=== PATIENT | male | born 1960 | race African-American/Black ===

== ENCOUNTER 2019-07-12 11:38 | Inpatient (IN) | payer OTHER ==
[~2019-07-12] VITALS: Ht 177.8 cm; Wt 96.9 kg
[2019-07-12 11:48] VITALS: BP_SYST 150
[2019-07-12] MEDS ORDERED: NACL 0.9% 1,000 ML IV ONE (12:00)
--- NOTE | 2019-07-12 12:00 | NUR ---
Patient triaged and placed on EMS gurney. VSS and patient appears in no acute distress at this time. Accompanied by ems , awaiting available bed, and MD notified of need for MSE.
--- NOTE | 2019-07-12 12:04 | NUR ---
Placed in room 03 . Placed on desk monitor, blood pressure machine and pulse oximeter. To gown for exam. Side rails up.
--- NOTE | 2019-07-12 12:05 | NUR ---
Pt AAOx2 presents to ED via BLS from [facility] for increased confusion and hyperglycemia with blood sugar up to 355 at facility. Pt agitated upon arrival, refusing vital signs and swinging at staff when attempting to get accucheck. Dr. Dueñas notified. Behavioral restraints ordered. Per MD, ok to use behavioral restraints if pt cannot be re-oriented to ED and continues to be combative with staff. Pt resting comfortably when left alone. Will continue to monitor.
--- NOTE | 2019-07-12 12:30 | NUR ---
MD FREY AT BEDSIDE ASSESSING PT.
[2019-07-12 12:32] LABS: BASOPHILS # (AUTO) 0.1 K/uL (0.0-0.2); BASOPHILS % (AUTO) 0.4 % (0.0-2.0); EOSINOPHILS % (AUTO) 0.1 % (0.0-4.0); HEMATOCRIT 45.6 % (36-54); HEMOGLOBIN 15.2 g/dL (14.0-18.0); LYMPHOCYTES # (AUTO) 0.8 K/uL (1.0-5.5); LYMPHOCYTES % (AUTO) 5.5 % (20.5-51.5); MEAN CORPUSCULAR HEMOGLOBIN 31 pg (27-31); MEAN CORPUSCULAR HGB CONC 33 % (32-36); MEAN CORPUSCULAR VOLUME 94 fL (79.0-98.0); MONOCYTES # (AUTO) 0.7 K/uL (0.0-1.0); MONOCYTES % (AUTO) 4.5 % (1.7-9.3); NEUTROPHILS # (AUTO) 13.7 K/uL (1.8-7.7); NEUTROPHILS % (AUTO) 89.5 % (40.0-70.0); PLATELET COUNT (AUTO) 360 K/uL (130-430); RED BLOOD CELL COUNT(AUTO) 4.87 MIL/uL (4.2-6.2); RED CELL DISTRIBUTION WIDTH 12.7 % (9.0-15.0); WHITE BLOOD COUNT (AUTO) 15.3 K/uL (4.8-10.8)
--- NOTE | 2019-07-12 12:45 | NUR ---
CHEST XRAY DONE. PT IS SLIGHTLY AGGESSIVE AND REFUSING CARE. RN HAS SPOKEN WITH PT KINDLY, AND GIVEN SANDWHICH AND JUICE. PT IS OPENING UP AND BEING MORE COOPERATIVE.
[2019-07-12 12:50] LABS: CALCIUM 10.3 mg/dL (8.4-11.0); CREATININE 2.04 mg/dL (0.55-1.30); POTASSIUM 4.9 mmol/L (3.5-5.1)
[2019-07-12 12:55] LABS: ALBUMIN 3.6 g/dL (3.4-4.8); TOTAL BILIRUBIN 0.6 mg/dL (0.0-1.0)
[2019-07-12] MEDS ORDERED: INSULIN REGULAR, HUMAN 10 UNITS/0.1 ML INJ IVP ONE (13:00)
[2019-07-12] MEDS ORDERED: VANCOMYCIN HCL 1,000 MG in NS 250 ML IV ONE (13:15)
[2019-07-12] MEDS ORDERED: MEROPENEM 500 MG in NS 50 ML IV ONE (13:15)
[2019-07-12] MEDS ORDERED: MEROPENEM 500 MG VIAL IV ONE (13:33)
--- NOTE | 2019-07-12 14:00 | NUR ---
IVPB Meropenem given by RN started infusion @ 1328 and completed infusion @ 1400. Medication was given IVPB, not IVP
[2019-07-12] MEDS ORDERED: ONDANSETRON HCL 4 MG/2 ML VIAL IVP PRN (14:15)
[2019-07-12] MEDS ORDERED: MILK OF MAGNESIA 30 ML UDC PO PRN (14:15)
[2019-07-12] MEDS ORDERED: guaiFENesin 200 MG/10 ML UDC PO PRN (14:15)
[2019-07-12] MEDS ORDERED: ACETAMINOPHEN 325 MG TABLET PO PRN (14:15)
[2019-07-12] MEDS ORDERED: NPH,100V2 SQ ×3 (14:55)
[2019-07-12] MEDS ORDERED: INSU100V42 SQ (14:55)
[2019-07-12] MEDS ORDERED: TAMS-11 PO (14:55)
[2019-07-12] MEDS ORDERED: pancrelipase PO (14:55)
[2019-07-12] MEDS ORDERED: LITH300T PO (14:58)
[2019-07-12] MEDS ORDERED: LITH600C PO (14:58)
[2019-07-12] MEDS ORDERED: ARIP20TA4 PO (14:58)
[2019-07-12] MEDS ORDERED: RISP3TAB5 PO (14:58)
[2019-07-12] MEDS ORDERED: LORA-259 PO (14:58)
--- NOTE | 2019-07-12 15:14 | NUR ---
RT at bedside for breathing tx
[2019-07-12] MEDS ORDERED: D5W 1,000 ML IV PRN (15:15)
[2019-07-12] MEDS: methylPREDNISolone SOD SUCC/PF 62.5 MG/ML VIAL IVP SCH ×2 (15:21→22:17)
[2019-07-12] MEDS: IPRATROPIUM/ALBUTEROL SULFATE 3 ML AMPUL.NEB (DUONEB) INH SCH ×3 (15:22→23:00)
--- NOTE | 2019-07-12 15:28 | NUR ---
EKG done at bedside. Dr. Ponce lawton.
--- NOTE | 2019-07-12 15:30 | NUR ---
IVPB Vancomycin was given by RN. Infusion started @ 1328 and was completed @ 1530.
[2019-07-12] MEDS ORDERED: VANCOMYCIN HCL 500 MG in NS 100 ML IV ONE (17:00)
[2019-07-12] MEDS: NPH, HUMAN INSULIN ISOPHANE 100 UNITS/ ML 10 ML VIAL SQ SCH (17:30)
[2019-07-12] MEDS ORDERED: INSULIN NPH 100 UNITS/ML 10 ML VIAL ONE (17:38)
[2019-07-12] MEDS ORDERED: CEFEPIME 1 GM in D5W 50 ML IV SCH (18:00)
--- NOTE | 2019-07-12 18:45 | NUR ---
Patient will be admitted to [facility]. Admitted to Telemetry unit. Will go to room 112B. Complete and up to date summary report printed. SBAR report to be given at bedside with opportunity for questions.
--- NOTE | 2019-07-12 18:51 | NUR ---
ADMIT NOTE Received pt from ER to the floor with a diagnosis of PNA and renal failure. Admission process initiated. patient oriented to pain management, safety and call light-teach back done.
[2019-07-12 18:56] VITALS: BP_SYST 120
--- NOTE | 2019-07-12 19:08 | NUR ---
CONSULTATION PAGED/CALLED Reason for Consultation: INCREASE CONFUSION Person Who was Notified: EXCHANGE Consulting Physician: MICKEY Production Sanitizer Specialty: Ordering Physician: REID
[2019-07-12] MEDS: CEFEPIME 1 GM in D5W 50 ML IV SCH (19:14)
[2019-07-12] MEDS: NACL 0.9% 1,000 ML IV SCH (19:15)
[2019-07-12] MEDS: risperiDONE 1 MG TABLET (RisperDAL) PO SCH (22:18)
[2019-07-12] MEDS: LITHIUM CARBONATE 300 MG TABLET.SA PO SCH (22:18)
[2019-07-12] MEDS: TAMSULOSIN HCL 0.4 MG CAP PO SCH (22:19)
[2019-07-12] MEDS: LIPASE/PROTEASE/AMYLASE 1 CAP PO SCH (22:19)
[2019-07-12] MEDS: HEPARIN SODIUM,PORCINE 5000 UNITS/ML VIAL SUBCUT SCH (22:30)
[2019-07-12] MEDS: INSULIN LISPRO SLIDING SCALE 100 UNITS/ML VIAL (humaLOG) SUBCUT PRN (22:42)
[2019-07-13 00:06] VITALS: BP_SYST 131
[2019-07-13] MEDS: NACL 0.9% 1,000 ML IV SCH ×3 (00:08→20:08)
[2019-07-13] MEDS: ZOLPIDEM TARTRATE 5 MG TABLET PO PRN (01:37)
[2019-07-13] MEDS: methylPREDNISolone SOD SUCC/PF 62.5 MG/ML VIAL IVP SCH ×3 (06:11→23:00)
[2019-07-13] MEDS: CEFEPIME 1 GM in D5W 50 ML IV SCH ×2 (06:11→17:36)
--- NOTE | 2019-07-13 07:50 | NUR ---
INITIAL NOTE RECEIVED PT IN BED, NO S/S OF DISTRESS OR SOB NOTED, PT HAS NO C/O PAIN AT THIS TIME, PT IN STABLE CONDITION, PT AAOX1, VERBAL BUT CONFUSED, PROVIDED PT WITH REALITY ORIENTATION, COMBATIVE AND YELLING AT TIMES, DOES NOT WANT TO BE APPROACH. IV CATHETER PATENT, NO SIGNS OF INFECTION OR INFILTRATION NOTED, RUNNING IV FLUIDS ORDERED. BED AT LOWEST POSITION, CALL LIGHT WITHIN REACH, WILL CONTINUE TO MONITOR PT FOR ANY CHANGES, FALL AND SAFETY PRECAUTIONS IN PLACE.
--- NOTE | 2019-07-13 08:10 | NUR ---
ASSESSMENT REFUSED PT REFUSED AM MEDS AND PHYSICAL ASSESSMENT, PT ANGRY AND YELLING, COMBATIVE AND CONFUSED, DOES NOT WANT TO BE APPROACHED AND IS CURSING. CHARGE NURSE MADE AWARE.
[2019-07-13] MEDS: ARIPiprazole 5 MG TAB PO SCH ×2 (08:14→08:22)
[2019-07-13] MEDS: LITHIUM CARBONATE 300 MG TABLET.SA PO SCH ×3 (08:15→23:10)
[2019-07-13] MEDS: LIPASE/PROTEASE/AMYLASE 1 CAP PO SCH ×4 (08:15→23:11)
[2019-07-13] MEDS: risperiDONE 1 MG TABLET (RisperDAL) PO SCH ×3 (08:15→23:10)
[2019-07-13] MEDS: HEPARIN SODIUM,PORCINE 5000 UNITS/ML VIAL SUBCUT SCH ×3 (08:16→21:00)
[2019-07-13] MEDS: NPH, HUMAN INSULIN ISOPHANE 100 UNITS/ ML 10 ML VIAL SQ SCH ×2 (08:23→17:39)
--- NOTE | 2019-07-13 10:30 | NUR ---
ROUNDS PT IN BED, NO S/S OF DISTRESS OR SOB NOTED, PT HAS NO C/O PAIN AT THIS TIME, PT IN STABLE CONDITION, PT RESTING COMFORTABLY, CONTINUES TO BE COMBATIVE, YELLING, CONFUSED, REFUSED TURNING AND REPOSITIONING. WILL CONTINUE TO MONITOR PT FOR ANY CHANGES.
--- NOTE | 2019-07-13 11:13 | NUR ---
CONSULTATION PAGED REASON FOR CONSULTATION:ARF WAS CONSULT CALLED?Y PERSON WHO WAS NOTIFIED:BETSY CONSULTING PHYSICIAN:AUGUSTO MARCH ELECTRIC SEALING MACHINE OPERATOR SPECIALTY:NEPHRO ELECTRIC SEALING MACHINE OPERATOR PHONE NUMBER:[phone] REQUESTING PHYSICIAN:PORTIA CHAVARRIA
--- NOTE | 2019-07-13 11:15 | NUR ---
MD ROUNDS DR FRANCES GARCIA, AWARE OF PATIENT'S CONDITION, AWARE THAT PT HAS REFUSED ACCUCHECKS AND MEDICATIONS WELL ASSESSMENT AND TURNING AND REPOSITIONED.
[2019-07-13] MEDS: VANCOMYCIN HCL 1,500 MG in NS 250 ML IV SCH (13:43)
[2019-07-13] MEDS ORDERED: VANCOMYCIN HCL 1,500 MG in NS 250 ML IV SCH (14:00)
[2019-07-13 15:59] LABS: HEMATOCRIT 42.7 % (36-54); HEMOGLOBIN 13.8 g/dL (14.0-18.0); MEAN CORPUSCULAR HEMOGLOBIN 31 pg (27-31); MEAN CORPUSCULAR HGB CONC 32 % (32-36); MEAN CORPUSCULAR VOLUME 95 fL (79.0-98.0); PLATELET COUNT (AUTO) 345 K/uL (130-430); RED CELL DISTRIBUTION WIDTH 12.7 % (9.0-15.0)
[2019-07-13 16:00] VITALS: BP_SYST 133
[2019-07-13 16:01] LABS: CALCIUM 9.9 mg/dL (8.4-11.0); CREATININE 1.83 mg/dL (0.55-1.30); POTASSIUM 5.4 mmol/L (3.5-5.1)
[2019-07-13 16:02] LABS: WHITE BLOOD COUNT (AUTO) 22.2 K/uL (4.8-10.8)
[2019-07-13 16:15] LABS: BAND % (MANUAL) 0 % (0-6); BASOPHILS % (MANUAL) 0 % (0-2); EOSINOPHILS % (MANUAL) 0 % (0-7); LYMPHOCYTES % (MANUAL) 5 % (20-46); MONOCYTES % (MANUAL) 5 % (0-11)
--- NOTE | 2019-07-13 16:15 | NUR ---
BLOOD GLUCOSE PATIENT'S BLOOD GLUCOSE WAS 383, ADMINISTERED 10 UNITS OF INSULIN ORDERED PRN, PT TOLERATED AND IS EATING A SNACK AT THIS TIME. PT CONTINUES TO BE COMBATIVE AND YELLING, ALLOWED FOR VITALS TO BE TAKEN BUT NO TURNING OR CLEANING. PT REMOVED IV CATHETER ON RIGHT HAND, CATHETER INTACT, NO ACTIVE BLEEDING NOTED, DRESSING IN PLACE, PT REFUSED PLACEMENT OF IV CATHETER AT THIS TIME. CHARGE NURSE MADE AWARE.
[2019-07-13] MEDS: INSULIN LISPRO SLIDING SCALE 100 UNITS/ML VIAL (humaLOG) SUBCUT PRN ×2 (16:18→23:22)
--- NOTE | 2019-07-13 18:24 | NUR ---
CLOSING NOTE PT SITTING UP IN CHAIR, NO S/S OF DISTRESS OR SOB NOTED, PT HAS NO C/O PAIN AT THIS TIME, PT IN STABLE CONDITION, PT AAOX1, VERBAL BUT CONFUSED, PROVIDED PT WITH REALITY ORIENTATION, COMBATIVE AND YELLING AT TIMES, DOES NOT WANT TO BE APPROACH. PT HAS NO IV CATHETER IN PLACE, REMOVED IT EARLIER AND REFUSED TO HAVE ANOTHER INSERTED. BED AT LOWEST POSITION, CALL LIGHT WITHIN REACH, WILL ENDORSE CARE OF PT TO INCOMING NURSE, FALL AND SAFETY PRECAUTIONS IN PLACE.
--- NOTE | 2019-07-13 19:12 | NUR ---
OPENING NOTES RECEIVED PATIENT SITTING IN CHAIR CONFUSED. PATIENT GETS AGITATED WHENEVER STAFF TRY TO MAKE A CONVERSATION. PATIENT SAFETY MONITORED. BREATHING UNLABORED ON ROOM AIR. NO C/O AT THIS TIME.
--- NOTE | 2019-07-13 21:00 | NUR ---
ROUNDS PATIENT REFUSING VITAL SIGNS TO BE TAKEN. PATIENT WAS RAISING ARM AND MAKING A FIST ON HIS RT HAND. LEFT PATIENT ALONE. WILL TRY AGAIN LATER. PATIENT REMAINS SITTING IN CHAIR. REFUSING TO GO BACK TO BED.
[2019-07-13] MEDS: TAMSULOSIN HCL 0.4 MG CAP PO SCH (23:11)
--- NOTE | 2019-07-13 23:22 | NUR ---
MED PASS PATIENT DUE MEDS GIVEN LATE DUE TO PT REFUSAL EARLIER. PATIENT PUT BACK TO BED WITH CHARGE NURSE KARY'S HELP. VITAL SIGNS STABLE. STILL REFUSING IV REINSERTION. BED IN LOWEST LOCKED POSITION WITH ALARM ON.
[2019-07-13 23:29] VITALS: BP_SYST 144
--- NOTE | 2019-07-14 00:10 | NUR ---
CRITICAL RESULT CALLED DR. DANIELS FOR CRITICAL RESULT CALLED BY LAB FOR LITHIUM LEVEL 4.38
--- NOTE | 2019-07-14 00:12 | NUR ---
PAGED I PAGED DR. DANIELS I SPOKE WITH INEMARY EXCHANGE
--- NOTE | 2019-07-14 00:32 | NUR ---
MD DR. DANIELS CALLED BACK MADE AWARE OF CRITICAL LITHIUM LEVEL. ORDERED TO HOLD CALCIUM CARBONATE. ORDER NOTED AND CARRIED OUT
--- NOTE | 2019-07-14 00:34 | NUR ---
CALLED BACK NOW
--- NOTE | 2019-07-14 01:37 | NUR ---
ROUNDS PATIENT RESTING IN BED. NO DISTRESS NOTED.
--- NOTE | 2019-07-14 04:02 | NUR ---
ROUNDS PATIENT AWAKE. PATIENT KEEPS REMOVING TELE LEADS. REFUSING LEADS TO BE FIXED AND GETS AGITATED WHEN BEING APPROACHED.
--- NOTE | 2019-07-14 05:30 | NUR ---
AM CARE AM CARE DONE. ALL LINENS CHANGED.
[2019-07-14] MEDS: CEFEPIME 1 GM in D5W 50 ML IV SCH ×2 (06:00→17:52)
[2019-07-14] MEDS: NACL 0.9% 1,000 ML IV SCH ×2 (06:08→16:08)
[2019-07-14] MEDS: INSULIN LISPRO SLIDING SCALE 100 UNITS/ML VIAL (humaLOG) SUBCUT PRN ×3 (06:24→21:55)
--- NOTE | 2019-07-14 06:35 | NUR ---
CLOSING NOTES PATIENT STILL REFUSING IV INSERTION. PATIENT NEEDS ATTENDED. BED IN LOWEST LOCKED POSITION WITH ALARM ON.
--- NOTE | 2019-07-14 06:57 | NUR ---
Nutrition Update Saad Scale 16 noted. Pt admitted for Pneumonia, Renal Failure Diet: Renal Standard BMI: 30.1 kg/m2 RD to follow per nutrition care standards.
[2019-07-14] MEDS: methylPREDNISolone SOD SUCC/PF 62.5 MG/ML VIAL IVP SCH (07:00)
--- NOTE | 2019-07-14 07:30 | NUR ---
RN OPENING NOTE PATIENT IS REFUSING IV ACCESS AT THIS TIME. PER NIGHT NURSE PATIENT IS COMBATIVE WHEN TRY TO TOUCH PATIENT. PATIENT ALSO REFUSING LAB WORK. PATIENT IS AWAKE AND ALERT, ATTEMPTED TO EDUCATE EFFICIENCY MINER LIGHT, PATIENT JUST LOOKED AT ME THEN CLOSED HIS EYES DID NOT SAY ANYTHING. PATIENT IS CLOSE TO NURSES STATION. ALL SAFETY PRECAUTIONS IN PLACE. WILL CONTINUE TO MONITOR.
[2019-07-14 08:30] VITALS: BP_SYST 137
[2019-07-14] MEDS: NPH, HUMAN INSULIN ISOPHANE 100 UNITS/ ML 10 ML VIAL SQ SCH ×2 (09:00→18:00)
[2019-07-14] MEDS: ARIPiprazole 5 MG TAB PO SCH (09:51)
[2019-07-14] MEDS: risperiDONE 1 MG TABLET (RisperDAL) PO SCH ×2 (09:51→21:29)
[2019-07-14] MEDS: LIPASE/PROTEASE/AMYLASE 1 CAP PO SCH ×3 (09:52→21:29)
--- NOTE | 2019-07-14 10:00 | NUR ---
MEDICATION PATIENTS SCHEDULED MEDICATION GIVEN ORDERED. NPH IS NOT SCANNING, PHARMACY IS AWARE STATES IT IS AN ERROR ON IT END. IT MADE AWARE, STATES THEY WILL CALL PHARMACY THEN CALL ME BACK. PATIENT HAS ALL SAFETY PRECAUTIONS IN PLACE. CALL LIGHT IS WITH HIM. PATIENT IS STILL REFUSING IV ACCESS.
[2019-07-14] MEDS: HEPARIN SODIUM,PORCINE 5000 UNITS/ML VIAL SUBCUT SCH ×2 (10:05→21:49)
[2019-07-14 10:37] LABS: BASOPHILS # (AUTO) 0.1 K/uL (0.0-0.2); BASOPHILS % (AUTO) 0.3 % (0.0-2.0); EOSINOPHILS % (AUTO) 0.2 % (0.0-4.0); HEMATOCRIT 43.3 % (36-54); HEMOGLOBIN 14.2 g/dL (14.0-18.0); MEAN CORPUSCULAR HEMOGLOBIN 31 pg (27-31); MEAN CORPUSCULAR HGB CONC 33 % (32-36); MEAN CORPUSCULAR VOLUME 94 fL (79.0-98.0); MONOCYTES # (AUTO) 1.2 K/uL (0.0-1.0); MONOCYTES % (AUTO) 6.1 % (1.7-9.3); NEUTROPHILS # (AUTO) 17.4 K/uL (1.8-7.7); NEUTROPHILS % (AUTO) 88.4 % (40.0-70.0); PLATELET COUNT (AUTO) 299 K/uL (130-430); RED BLOOD CELL COUNT(AUTO) 4.61 MIL/uL (4.2-6.2); RED CELL DISTRIBUTION WIDTH 12.9 % (9.0-15.0); WHITE BLOOD COUNT (AUTO) 19.7 K/uL (4.8-10.8)
[2019-07-14 10:56] LABS: POTASSIUM 4.4 mmol/L (3.5-5.1)
[2019-07-14 10:57] LABS: ALBUMIN 3.6 g/dL (3.4-4.8); CALCIUM 10.6 mg/dL (8.4-11.0); CREATININE 1.51 mg/dL (0.55-1.30); PHOSPHORUS 1.9 mg/dL (2.7-4.5); TOTAL BILIRUBIN 0.4 mg/dL (0.0-1.0)
--- NOTE | 2019-07-14 11:05 | NUR ---
NPH GIVEN WITNESSED BY RN. UNABLE TO SCAN PHARMACY AND IT ARE AWARE.
[2019-07-14 12:19] VITALS: BP_SYST 140
--- NOTE | 2019-07-14 12:20 | NUR ---
dr. reece at nurses station patient is awake and alert, refusing iv access, made aware. patient has all safety precautions in place. call light is with him . educated verification rep light but does not respond verbally. patient is close to nurses station. will continue to monitor. Addendum: 07/14/19 at 2120 by Camryn Shipley RN PATIENTS ACCU CHECK DONE, COVERAGE GIVEN ORDERED.
[2019-07-14 13:56] LABS: CLARITY/URINE CLEAR (CLEAR); COLOR,URINE YELLOW (YELLOW); GLUCOSE,URINE 2+ (NEGATIVE); PH,URINE 6.5 (5.0-8.0); PROTEIN URINE NEGATIVE (NEGATIVE)
[2019-07-14 13:57] LABS: BILIRUBIN,URINE NEGATIVE (NEGATIVE); BLOOD, URINE NEGATIVE (NEGATIVE); KETONES,URINE 1+ (NEGATIVE); LEUKOCYTE ESTERASE ,URINE NEGATIVE (NEGATIVE); NITRITE, URINE NEGATIVE (NEGATIVE)
[2019-07-14 13:58] LABS: BACTERIA,URINE RARE /HPF (None Seen); RBC,URINE 0-3 /HPF (0-3); WBC,URINE 0-3 /HPF (0-3)
[2019-07-14 13:59] LABS: MUCUS,URINE 1+ /LPF (None Seen)
[2019-07-14] MEDS: VANCOMYCIN HCL 1,500 MG in NS 250 ML IV SCH (14:00)
--- NOTE | 2019-07-14 14:00 | NUR ---
INCONTINENCE CARE PATIENT IS SOILED DOES NOT WANT TO BE TOUCHED, IS KICKING AND SWINGING AT NURSES. ATTEMPTED TO REORIENT. ABLE TO REMOVE SOILED TRUNG AND PLACE NEW TRUNG UNDER PATIENT. ALL SAFETY PRECAUTIONS IN PLACE. CLOSE TO NURSES STATION.
[2019-07-14] MEDS: methylPREDNISolone SOD SUCC 40 MG/ML VIAL IVP SCH ×2 (15:00→23:00)
[2019-07-14 15:08] VITALS: BP_SYST 126
--- NOTE | 2019-07-14 15:51 | NUR ---
medication patients scheduled medication given per order. patient is refusing iv access. patient is non verbal but can knodd. Addendum: 07/14/19 at 2124 by Camryn Shipley RN PATIENT IS SWINGING HIS ARMS, AND KICKING AT NURSES. ATTEMPTED TO REORIENT BUT IS NOT UNDERSTANDING.PATIENT HAS ALL SAFETY PRECAUTIONS IN PLACE. WILL TAKE ORAL MEDICATION ONLY. CALL LIGHT IS WITH HIM EDUCATED TO USE FOR ASSISTANCE. PATIENT HAS NO OTHER NEEDS AT THIS TIME. WILL CONTINUE TO MONITOR.
[2019-07-14 16:55] LABS: URINE SODIUM, RANDOM 68 mmol/L (40-220)
--- NOTE | 2019-07-14 17:00 | NUR ---
ACCU CHECK/NPH PATIENT IS REFUSING MEDICATION AND ACCU CHECK TO BE DONE. PATIENT IS SWINGING HIS ARMS AT NURSE TRYING TO HIT HER. PATIENT ATTEMPTED TO REORIENTED BUT IS NOT UNDERSTANDING. PATIENT HAS ALL SAFETY PRECAUTIONS IN PLACE CALL LIGHT IS HIM EDUCATED TO USE FOR ASSISTANCE. PATIENT IS CLOSE TO NURSES STATION NO OTHER NEEDS AT THIS TIME.
--- NOTE | 2019-07-14 18:44 | NUR ---
RN CLOSING NOTE/ DR. MARIA TERESA LEBLANC AT NURSES STATION. MD MADE AWARE OF COMBATIVE BEHAVIOR, AND REFUSING IV ACCESS ALL DAY. PATIENT DOES NOT WANT TO BE TOUCHED. PATIENT HAS ALL SAFETY PRECAUTIONS IN PLACE. CALL LIGHT IS WITH HIM . PATIENT IS CLOSE TO NURSES STATION. NO OTHER NEEDS AT THIS TIME.
--- NOTE | 2019-07-14 19:35 | NUR ---
Opening Note Received report from kamala BAZAN, patient is resting in bed, Julita to name, reoriented patient to person, place, time and event, Addendum: 07/15/19 at 0010 by Eda Tran RN Opening Note Received report from kamala BAZAN, patient is resting in bed, Julita to name, reoriented patient to person, place, time and event, even and unlabored breathing on room air, no signs of acute distress, no IV site in place, will try and re-interest new IV, safety, fall and aspiration precautions in place, bed locked and in lowest position, bed alarm on, bed close to nursing station, call light with patient, will continue to monitor.
[2019-07-14 20:00] VITALS: BP_SYST 155
--- NOTE | 2019-07-14 21:20 | NUR ---
Incontinence Care/RN Rounds Patient voided. Incontinence care rendered by this RN and Rebeka RODRIGUEZ. Had Mario RN assist because patient became combative. Patient is clean, dry, and repositioned. Multiple RNs attempted to reinsert new IV but patient refused despite education. Safety and fall precautions in place, bed close to nursing station, call light with patient, will continue to monitor.
[2019-07-14] MEDS: TAMSULOSIN HCL 0.4 MG CAP PO SCH (21:29)
--- NOTE | 2019-07-14 21:54 | NUR ---
Blood Sugar= 229 Patient's blood sugar is 229. Insulin lispro indicated per insulin sliding scale. Educated patient on medication uses and potential side effects, patient unable to verbalize understanding due to cognitive impairment. Administered medication per MD order. No signs of acute distress at this time. Safety and fall precautions in place, call light with patient, will continue to monitor.
--- NOTE | 2019-07-15 00:10 | NUR ---
RN Rounds Pt is resting in bed, awake, pt physically refused renal ultra sound despite education, catheterization laboratory technician verbalized she will try again in the morning, pt is tolerating room air, no signs of acute distress, admitting RN attempted to reinsert new IV but patient refused, safety and fall precautions in place, call light with patient, will continue to monitor.
[2019-07-15 00:32] VITALS: BP_SYST 156
[2019-07-15] MEDS: NACL 0.9% 1,000 ML IV SCH ×3 (02:08→22:08)
--- NOTE | 2019-07-15 02:40 | NUR ---
RN Rounds Patient is resting in bed, eyes closed, no signs of acute distress, tolerating room air, no IV site in place, will try and reinsert new IV, safety and fall precautions in place, bed close to nursing station, call light with patient, will continue to monitor.
--- NOTE | 2019-07-15 04:31 | NUR ---
RN Rounds Patient is resting in bed, eyes closed, tolerating room air, no signs of acute distress, safety and fall precautions in place, bed close to nursing station, call light with patient, will continue to monitor.
[2019-07-15] MEDS: CEFEPIME 1 GM in D5W 50 ML IV SCH ×2 (06:00→17:06)
--- NOTE | 2019-07-15 06:20 | NUR ---
Dr. Fairchild Rounds Dr. Fairchild at bedside at this time.
[2019-07-15] MEDS: INSULIN LISPRO SLIDING SCALE 100 UNITS/ML VIAL (humaLOG) SUBCUT PRN ×4 (06:37→21:39)
--- NOTE | 2019-07-15 06:37 | NUR ---
Blood Sugar= 205 Patient's blood sugar is 205. Insulin lispro indicated per insulin sliding scale. Educated patient on medication uses and potential side effects, patient unable to verbalize understanding due to cognitive impairment. Administered medication per MD order. No signs of acute distress at this time. Safety and fall precautions in place, call light with patient, will continue to monitor.
[2019-07-15] MEDS: methylPREDNISolone SOD SUCC 40 MG/ML VIAL IVP SCH ×3 (06:43→23:00)
--- NOTE | 2019-07-15 06:47 | NUR ---
Closing Note Patient is resting in bed, awake and confused, reoriented patient to person, place, time and event, even and unlabored breathing on room air, no signs of acute distress, no IV site in place, patient refused multiple attempts to reinsert new IV, safety, fall and aspiration precautions in place, bed locked and in lowest position, bed alarm on, bed close to nursing station, call light with patient, will endorse care to dayshift RN.
--- NOTE | 2019-07-15 07:35 | NUR ---
Opening Notes Patient received awake and resting in bed at this time. Patient in no signs of distress. Patient does not complain of pain. Safety precautions enforced. Reinforced use of call light.
[2019-07-15] MEDS ORDERED: INSULIN NPH 100 UNITS/ML 10 ML VIAL SQ SCH (07:51)
[2019-07-15 08:00] VITALS: BP_SYST 162
[2019-07-15 08:06] LABS: BASOPHILS % (AUTO) 0.1 % (0.0-2.0); EOSINOPHILS # (AUTO) 0.1 K/uL (0.0-0.4); EOSINOPHILS % (AUTO) 0.6 % (0.0-4.0); HEMOGLOBIN 14.3 g/dL (14.0-18.0); LYMPHOCYTES # (AUTO) 1.2 K/uL (1.0-5.5); LYMPHOCYTES % (AUTO) 8.3 % (20.5-51.5); MEAN CORPUSCULAR HEMOGLOBIN 31 pg (27-31); MEAN CORPUSCULAR HGB CONC 33 % (32-36); MEAN CORPUSCULAR VOLUME 94 fL (79.0-98.0); MONOCYTES # (AUTO) 1.1 K/uL (0.0-1.0); MONOCYTES % (AUTO) 7.3 % (1.7-9.3); NEUTROPHILS # (AUTO) 12.4 K/uL (1.8-7.7); NEUTROPHILS % (AUTO) 83.7 % (40.0-70.0); PLATELET COUNT (AUTO) 310 K/uL (130-430); RED BLOOD CELL COUNT(AUTO) 4.68 MIL/uL (4.2-6.2); RED CELL DISTRIBUTION WIDTH 13.1 % (9.0-15.0); WHITE BLOOD COUNT (AUTO) 14.9 K/uL (4.8-10.8)
[2019-07-15 08:43] LABS: CALCIUM 10.7 mg/dL (8.4-11.0); CREATININE 1.29 mg/dL (0.55-1.30); POTASSIUM 4.3 mmol/L (3.5-5.1); TOTAL BILIRUBIN 0.4 mg/dL (0.0-1.0)
[2019-07-15 08:44] LABS: ALBUMIN 3.3 g/dL (3.4-4.8)
[2019-07-15] MEDS: risperiDONE 1 MG TABLET (RisperDAL) PO SCH ×2 (08:56→21:25)
[2019-07-15] MEDS: LIPASE/PROTEASE/AMYLASE 1 CAP PO SCH ×3 (08:57→21:25)
[2019-07-15] MEDS: QUEtiapine FUMARATE 25 MG TABLET PO SCH ×3 (08:57→21:25)
[2019-07-15] MEDS: HEPARIN SODIUM,PORCINE 5000 UNITS/ML VIAL SUBCUT SCH ×3 (09:00→21:31)
[2019-07-15] MEDS: INSULIN NPH 100 UNITS/ML 10 ML VIAL SQ SCH (09:03)
--- NOTE | 2019-07-15 10:00 | NUR ---
RN Rounds Patient refuses IV placement at this time. Patient noted to be confused and is incomprehensible. Patient in no signs of distress. Patient does not complain of pain. MD aware.
[2019-07-15 10:37] LABS: LITHIUM 4.88 mEq/L (0.50-1.0)
[2019-07-15 12:00] VITALS: BP_SYST 131
--- NOTE | 2019-07-15 12:00 | NUR ---
RN Rounds Patient resting at this time, no signs of distress noted. Safety precautions enforced.
[2019-07-15] MEDS: DIPHENHYDRAMINE INJ 50 MG/ML VIAL IM ONE ×2 (12:51→12:54)
--- NOTE | 2019-07-15 14:00 | NUR ---
RN Rounds Patient resting at this time, no complaints of pain. Call light within reach.
--- NOTE | 2019-07-15 14:10 | NUR ---
Social Service Note: FIELD SALES CONSULTANT placed call to [facility] ([phone]), FIELD SALES CONSULTANT spoke to Ayse in admissions. Ayse states that [facility] to [facility]; Ayse stated that she did not know where pt was admitted from. Ayse states that pt is on a 7 day bedhold. FIELD SALES CONSULTANT asked Ayse about pt's contact persons/family. Ayse reports that pt is self-responsible and does not have any contact persons.
--- NOTE | 2019-07-15 16:00 | NUR ---
RN Rounds Patient resting in bed at this time, no signs of distress noted. Patient remains to refuse IV placement. aware.
--- NOTE | 2019-07-15 16:15 | NUR ---
Malted Milk Mixer-Conservator Information: [facility] contacted the public guardian's office; pt is assigned to Marina Walker (Public Guardian/Conservator) [phone]. Marina Walker should be contacted for any needs for the patient; Marina stated that she is responsible for "person and state" for Mr. Meade. Marina states that she would prefer for pt to return to [facility] upon discharge. [facility] has asked admitting department to update pt's facesheet with Marina Walker's information.
[2019-07-15 16:44] VITALS: BP_SYST 156
--- NOTE | 2019-07-15 18:00 | NUR ---
RN Rounds Patient resting at this time, no signs of distress noted. Patient does not complain of pain. Safety precautions enforced.
--- NOTE | 2019-07-15 19:30 | NUR ---
OPENING NOTES Patient is resting, eyes closed, nonverbal, no pain per FLACC scale. Received report that patient is unable to receive IV antibiotics, as no IV site is available and MD is aware. Call light within reach, bed alarm on, bed at lowest position. Will continue to monitor.
[2019-07-15 20:00] VITALS: BP_SYST 137
[2019-07-15] MEDS: VANCOMYCIN HCL 1,500 MG in NS 250 ML IV SCH (21:00)
[2019-07-15 21:22] LABS: MICROALBUMIN URINE RANDOM 45.2 ug/ml (NOT ESTABLISHED)
[2019-07-15] MEDS: TAMSULOSIN HCL 0.4 MG CAP PO SCH (21:25)
--- NOTE | 2019-07-15 22:10 | NUR ---
Patient provided PO medications with apple sauce but when giving subcutaneous medications, patient swings arms around and needed assistance when giving medications. Patient is resting with no signs of distress. Will continue to monitor.
[2019-07-16] VITALS: BP_SYST 154
--- NOTE | 2019-07-16 01:21 | NUR ---
Patient is sleeping, rise and fall of chest observed. No signs of distress observed. Safety precautions in place. Will continue to monitor.
--- NOTE | 2019-07-16 03:01 | NUR ---
Patient is resting, eyes closed. No signs of distress observed at this time. will continue to monitor.
[2019-07-16] MEDS: VANCOMYCIN HCL 1,500 MG in NS 250 ML IV SCH ×3 (05:00→21:00)
[2019-07-16] MEDS: CEFEPIME 1 GM in D5W 50 ML IV SCH (06:00)
[2019-07-16] MEDS: methylPREDNISolone SOD SUCC 40 MG/ML VIAL IVP SCH (06:20)
[2019-07-16] MEDS: INSULIN LISPRO SLIDING SCALE 100 UNITS/ML VIAL (humaLOG) SUBCUT PRN ×4 (06:32→22:22)
--- NOTE | 2019-07-16 06:53 | NUR ---
CLOSING NOTE Patient is resting in bed, nonverbal, no IV access. Safety and fall precautions in place, bed locked and in lowest position, bed alarm on, call light within reach. All needs met throughout shift. Will endorse care to oncoming shift.
[2019-07-16 08:00] VITALS: BP_SYST 143
[2019-07-16] MEDS: NACL 0.9% 1,000 ML IV SCH ×2 (08:08→18:08)
[2019-07-16 08:10] LABS: BASOPHILS % (AUTO) 0.1 % (0.0-2.0); EOSINOPHILS % (AUTO) 0.1 % (0.0-4.0); HEMATOCRIT 43.4 % (36-54); HEMOGLOBIN 14.1 g/dL (14.0-18.0); LYMPHOCYTES # (AUTO) 1.1 K/uL (1.0-5.5); LYMPHOCYTES % (AUTO) 6.8 % (20.5-51.5); MEAN CORPUSCULAR HEMOGLOBIN 31 pg (27-31); MEAN CORPUSCULAR HGB CONC 33 % (32-36); MEAN CORPUSCULAR VOLUME 94 fL (79.0-98.0); MONOCYTES # (AUTO) 1.1 K/uL (0.0-1.0); MONOCYTES % (AUTO) 6.8 % (1.7-9.3); NEUTROPHILS # (AUTO) 14.1 K/uL (1.8-7.7); NEUTROPHILS % (AUTO) 86.2 % (40.0-70.0); PLATELET COUNT (AUTO) 297 K/uL (130-430); RED BLOOD CELL COUNT(AUTO) 4.61 MIL/uL (4.2-6.2); RED CELL DISTRIBUTION WIDTH 12.9 % (9.0-15.0); WHITE BLOOD COUNT (AUTO) 16.4 K/uL (4.8-10.8)
--- NOTE | 2019-07-16 08:20 | NUR ---
OPENING NOTES Received pt in bed, is resting, eyes closed, nonverbal, no pain per FLACC scale, no fever. Pt has no IV site is available and MD is aware. Call light within reach, bed alarm on, bed at lowest position. Will continue to monitor.
[2019-07-16] MEDS: QUEtiapine FUMARATE 25 MG TABLET PO SCH ×3 (08:45→22:12)
[2019-07-16] MEDS: LIPASE/PROTEASE/AMYLASE 1 CAP PO SCH ×3 (08:45→22:11)
[2019-07-16] MEDS: risperiDONE 1 MG TABLET (RisperDAL) PO SCH ×2 (08:45→22:12)
[2019-07-16] MEDS: HEPARIN SODIUM,PORCINE 5000 UNITS/ML VIAL SUBCUT SCH ×2 (09:08→22:11)
[2019-07-16] MEDS: INSULIN NPH 100 UNITS/ML 10 ML VIAL SQ SCH (09:12)
--- NOTE | 2019-07-16 10:30 | NUR ---
pt in bed, awake, no s/s of pain, no sob. will cont to monitor.
[2019-07-16 10:41] LABS: CALCIUM 10.4 mg/dL (8.4-11.0); CREATININE 1.43 mg/dL (0.55-1.30); POTASSIUM 4.7 mmol/L (3.5-5.1)
[2019-07-16 10:48] LABS: TOTAL BILIRUBIN 0.5 mg/dL (0.0-1.0)
[2019-07-16 11:37] VITALS: BP_SYST 109
--- NOTE | 2019-07-16 12:05 | NUR ---
DR DANIELS HERE AND MADE AWARE OF THE CRITICAL LEVEL OF LITHIUM AND BLOOD SUGAR. ALSO MADE AWARE BY CURB SETTER HELPER ZENY. Addendum: 07/16/19 at 1237 by Ned Brock RN DR DANIELS MADE AWARE / ACKNOWLEDGED THAT PT IS NOT RECEIVING IV ANTIBIOTICS DUE TO UNABLE TO START IV PT IS NOT COOPERATIVE.
[2019-07-16] MEDS ORDERED: LEVOFLOXACIN 500 MG TABLET PO ONE (12:30)
--- NOTE | 2019-07-16 12:30 | NUR ---
pt in bed, eating lunch with assist from mariella kiran. no s/s pain, no sob.
--- NOTE | 2019-07-16 14:00 | NUR ---
pt in bed, awake, no s/s of pain, no sob. will cont to monitor.
[2019-07-16 15:27] VITALS: BP_SYST 156
--- NOTE | 2019-07-16 16:00 | NUR ---
pt in bed, sleeping comfortably no s/s of pain, no sob. will cont to monitor.
[2019-07-16] MEDS ORDERED: INSULIN NPH 100 UNITS/ML 10 ML VIAL SQ SCH (18:00)
--- NOTE | 2019-07-16 19:10 | NUR ---
CLOSING NOTE, PT HAS BEEN STABLE THE WHOLE SHIFT, NO S/S OF PAIN, NO FEVER. MD AWARE OF PT HAVING NO IV ACCESS AND NO IV ABX GIVEN. MD ORDERED PO LEVAQUIN AND IT WAS GIVEN. ENDORSED TO NIGHT NURSE.
--- NOTE | 2019-07-16 19:21 | NUR ---
OPENING NOTES Patient is resting, eyes closed, nonverbal, no pain per FLACC scale. No IV site is available and MD is aware. Call light within reach, bed alarm on, bed at lowest position. Will continue to monitor.
[2019-07-16 20:25] VITALS: BP_SYST 135
[2019-07-16] MEDS: PREDNISONE 20 MG TABLET PO SCH (22:12)
[2019-07-16] MEDS: TAMSULOSIN HCL 0.4 MG CAP PO SCH (22:12)
--- NOTE | 2019-07-17 00:14 | NUR ---
Patient is resting, eyes closed. No distress noted. Will continue to monitor.
[2019-07-17 01:45] VITALS: BP_SYST 120
--- NOTE | 2019-07-17 02:20 | NUR ---
Patient is resting, no signs of acute respiratory distress observed. Will continue to monitor.
[2019-07-17] MEDS: NACL 0.9% 1,000 ML IV SCH ×2 (04:08→13:54)
--- NOTE | 2019-07-17 04:11 | NUR ---
Patient is moving around arms, no distress noted. Patient still flings arms around when incontinence care provided. Will continue to monitor.
[2019-07-17] MEDS: VANCOMYCIN HCL 1,500 MG in NS 250 ML IV SCH ×3 (05:00→21:00)
[2019-07-17 06:29] LABS: CALCIUM 10.7 mg/dL (8.4-11.0); CREATININE 1.4 mg/dL (0.55-1.30); POTASSIUM 4.7 mmol/L (3.5-5.1)
[2019-07-17] MEDS: INSULIN LISPRO SLIDING SCALE 100 UNITS/ML VIAL (humaLOG) SUBCUT PRN ×4 (06:42→22:36)
[2019-07-17 06:55] LABS: BASOPHILS % (AUTO) 0.1 % (0.0-2.0); EOSINOPHILS % (AUTO) 0.1 % (0.0-4.0); HEMATOCRIT 44.6 % (36-54); HEMOGLOBIN 14.8 g/dL (14.0-18.0); LYMPHOCYTES # (AUTO) 0.9 K/uL (1.0-5.5); LYMPHOCYTES % (AUTO) 4.2 % (20.5-51.5); MEAN CORPUSCULAR HEMOGLOBIN 31 pg (27-31); MEAN CORPUSCULAR HGB CONC 33 % (32-36); MEAN CORPUSCULAR VOLUME 94 fL (79.0-98.0); MONOCYTES # (AUTO) 0.8 K/uL (0.0-1.0); MONOCYTES % (AUTO) 3.8 % (1.7-9.3); NEUTROPHILS # (AUTO) 18.9 K/uL (1.8-7.7); PLATELET COUNT (AUTO) 294 K/uL (130-430); RED BLOOD CELL COUNT(AUTO) 4.74 MIL/uL (4.2-6.2); RED CELL DISTRIBUTION WIDTH 12.9 % (9.0-15.0); WHITE BLOOD COUNT (AUTO) 20.6 K/uL (4.8-10.8)
--- NOTE | 2019-07-17 07:26 | NUR ---
RN OPENING NOTE REPORT WAS ENDORSED BY NIGHT NURSE. PATIENT IS APPEARS TO BE RESTING BREATHING IS EQUAL AND NON LABORED. PATIENT IS CLOSE TO NURSES STATION. ALL SAFETY PRECAUTIONS IN PLACE. NO OTHER NEEDS AT THIS TIME.
[2019-07-17 08:00] VITALS: BP_SYST 112
[2019-07-17] MEDS ORDERED: INSULIN NPH 100 UNITS/ML 10 ML VIAL SQ SCH ×2 (09:00→18:00)
[2019-07-17] MEDS: LIPASE/PROTEASE/AMYLASE 1 CAP PO SCH ×3 (09:15→22:29)
[2019-07-17] MEDS: QUEtiapine FUMARATE 25 MG TABLET PO SCH ×3 (09:15→22:29)
[2019-07-17] MEDS: PREDNISONE 20 MG TABLET PO SCH (09:15)
[2019-07-17] MEDS: risperiDONE 1 MG TABLET (RisperDAL) PO SCH ×2 (09:16→22:29)
[2019-07-17] MEDS: HEPARIN SODIUM,PORCINE 5000 UNITS/ML VIAL SUBCUT SCH ×2 (09:17→22:36)
--- NOTE | 2019-07-17 09:25 | NUR ---
medication/incontinence care Addendum: 07/17/19 at 1254 by Camryn Shipley RN patients scheduled medication given per order. patient is also provided with incontinence care by mariella. patient shows no signs of any distress,breathing is equal and non labored. patient has all safety precautions in place. patient is close to nurses station. no other needs at this time. will continue to monitor.
[2019-07-17] MEDS: LEVOFLOXACIN 500 MG TABLET PO SCH (10:36)
--- NOTE | 2019-07-17 10:39 | NUR ---
medication Addendum: 07/17/19 at 1255 by Camryn Shipley RN patients scheduled medication given per order. patient tolerated well. patient has all safety precautions in place. call light is with him. educated to use for assistance, but patient is confused. patient is close to nurses station. patient shows no signs of any distress, breathing is equal and non labored. will continue to monitor.
--- NOTE | 2019-07-17 10:53 | NUR ---
Discharge Planning: DCP faxed patient referral to [facility] (f [phone] p [phone]) DCP to follow up. Addendum: 07/17/19 at 1524 by Jessica Sanchez [facility] (f [phone] p [phone]) pt accepted to room 139B
--- NOTE | 2019-07-17 11:51 | NUR ---
dr. Ponce lawton for elevated blood glucose.
[2019-07-17 12:01] LABS: NEUTROPHILS % (AUTO) 91.8 % (40.0-70.0)
--- NOTE | 2019-07-17 12:05 | NUR ---
insulin coverage given as per protocol. Addendum: 07/17/19 at 1252 by Camryn Shipley RN dr. reece at nurses station, made aware of elevated blood sugar.md to see patient. patient has all safety precautions in place. call light is with him. patient is close to nurses station. patient shows no signs of any distress, breathing is equal and non labored. will continue to monitor.
[2019-07-17 12:32] VITALS: BP_SYST 136
[2019-07-17 13:22] LABS: LITHIUM 5.11 mEq/L (0.50-1.0)
--- NOTE | 2019-07-17 14:50 | NUR ---
medication patient scheduled medication given per order. patient is awake and alert, tolerated medication well. patient has all safety precautions in place. call light is with him. close to nurses station . no other needs at this time. will continue to monitor.
[2019-07-17 16:04] VITALS: BP_SYST 130
--- NOTE | 2019-07-17 16:10 | NUR ---
Dietitian Recommendations *Recommend change to Renal, CCHO, Puree *Consider ONS if PO intake does not improve with texture change Please refer to Nutrition Assessment for further details. LT, RD
--- NOTE | 2019-07-17 16:38 | NUR ---
RN ROUNDING PATIENT IS AWAKE AND ALERT, SITTING UP IN BED,NO SIGNS OF ANY DISTRESS, BREATHING IS EQUAL AND NON LABORED. ALL SAFETY PRECAUTIONS IN PLACE. PATIENT IS CLOSE TO NURSES STATION. PATIENT HAS NO OTHER NEEDS AT THIS TIME.
--- NOTE | 2019-07-17 17:24 | NUR ---
accu check done patient accu check elevated paged dr. Serra to informed, covered as ordered, nph also given as ordered. patient is awake and alert, incontinence care provided by cordwood cutter helper. patient has all safety precautions in place. no signs of any distress, breathing is equal and non labored. patient is close to nurses station no other needs at this time. Addendum: 07/17/19 at 1732 by Camryn Shipley RN spoke with doctor serra no further orders, continue to monitor.
--- NOTE | 2019-07-17 18:46 | NUR ---
RN CLOSING NOTE PATIENT IS AWAKE AND ALERT SITTING UP IN BED, PATIENT IS SHOWS COMBATIVE BEHAVIOR SWINGING AT APPEALS COORDINATOR. PATIENT BREATHING IS EQUAL AND NON LABORED. PATIENT IS CLOSE TO NURSES STATION. ALL SAFETY PRECAUTIONS IN PLACE. NO OTHER NEEDS AT THIS TIME.
--- NOTE | 2019-07-17 19:41 | NUR ---
Initial note: Report received from dayshift RN. Patient is awake in bed, no acute distress. Non-verbal. Tolerating room air, even and unlabored breathing. No IV site present, MD is aware. Call light with patient. Safety, fall, aspiration precautions in place. Will continue with plan of care.
[2019-07-17 20:30] VITALS: BP_SYST 142
[2019-07-17] MEDS: TAMSULOSIN HCL 0.4 MG CAP PO SCH (22:29)
--- NOTE | 2019-07-17 22:38 | NUR ---
Blood sugar: Patient's blood sugar is 366. Administered 10 units Humalog insulin subcutaneously per MD-ordered sliding scale. Call light with patient Will monitor for s/s of hypoglycemia.
[2019-07-18 00:02] VITALS: BP_SYST 160
[2019-07-18] MEDS: NACL 0.9% 1,000 ML IV SCH ×3 (00:08→22:45)
--- NOTE | 2019-07-18 00:44 | NUR ---
Rounds: Patient is resting comfortably in bed. No acute distress noted. Tolerating room air. Call light with patient. Will continue monitoring.
--- NOTE | 2019-07-18 02:20 | NUR ---
Rounds: Patient is resting in bed, breathing is audible, tolerating room air, even and unlabored breathing. No acute distress. Call light with patient. All precautions in place. Will continue to monitor.
--- NOTE | 2019-07-18 04:53 | NUR ---
Rounds: Patient is asleep, does not show any acute distress. Even and unlabored respirations on room air. Call light with patient. Will continue to monitor.
[2019-07-18] MEDS: VANCOMYCIN HCL 1,500 MG in NS 250 ML IV SCH ×4 (05:00→22:45)
[2019-07-18 06:16] LABS: BASOPHILS % (AUTO) 0.1 % (0.0-2.0); EOSINOPHILS # (AUTO) 0.1 K/uL (0.0-0.4); EOSINOPHILS % (AUTO) 0.5 % (0.0-4.0); HEMATOCRIT 44.5 % (36-54); HEMOGLOBIN 14.6 g/dL (14.0-18.0); LYMPHOCYTES # (AUTO) 1.8 K/uL (1.0-5.5); LYMPHOCYTES % (AUTO) 8.8 % (20.5-51.5); MEAN CORPUSCULAR HEMOGLOBIN 31 pg (27-31); MEAN CORPUSCULAR HGB CONC 33 % (32-36); MEAN CORPUSCULAR VOLUME 93 fL (79.0-98.0); MONOCYTES # (AUTO) 1.5 K/uL (0.0-1.0); MONOCYTES % (AUTO) 7.5 % (1.7-9.3); NEUTROPHILS % (AUTO) 83.1 % (40.0-70.0); PLATELET COUNT (AUTO) 336 K/uL (130-430); RED BLOOD CELL COUNT(AUTO) 4.77 MIL/uL (4.2-6.2); RED CELL DISTRIBUTION WIDTH 13.1 % (9.0-15.0); WHITE BLOOD COUNT (AUTO) 20.5 K/uL (4.8-10.8)
[2019-07-18 06:41] LABS: ALBUMIN 2.9 g/dL (3.4-4.8); CALCIUM 10.9 mg/dL (8.4-11.0); CREATININE 1.39 mg/dL (0.55-1.30); POTASSIUM 4.2 mmol/L (3.5-5.1); TOTAL BILIRUBIN 0.2 mg/dL (0.0-1.0)
--- NOTE | 2019-07-18 06:41 | NUR ---
Closing note: Patient is awake in bed mumbling, no acute distress. Tolerating room air. IV site not present, MD aware. Blood sugar this AM was 73. Patient drank 1 box of orange juice at this time. All needs met. Safety, fall, aspiration precautions in place. Hourly rounding performed throughout shift. Will endorse care to dayshift RN.
--- NOTE | 2019-07-18 07:36 | NUR ---
Opening Note received bedside SBAR report from hotel night auditor RN, patient resting in bed, respirations even and unlabored on room air, no acute distress noted, educated patient on use of call light and asked to call for assistance, call light in reach, bed in low and locked position, bed alarm on.
[2019-07-18 08:00] VITALS: BP_SYST 152
[2019-07-18] MEDS: LIPASE/PROTEASE/AMYLASE 1 CAP PO SCH ×3 (08:27→21:54)
[2019-07-18] MEDS: QUEtiapine FUMARATE 25 MG TABLET PO SCH ×3 (08:28→21:54)
[2019-07-18] MEDS: risperiDONE 1 MG TABLET (RisperDAL) PO SCH ×2 (08:28→21:54)
[2019-07-18] MEDS: HEPARIN SODIUM,PORCINE 5000 UNITS/ML VIAL SUBCUT SCH ×2 (08:36→21:52)
[2019-07-18] MEDS ORDERED: INSULIN NPH 100 UNITS/ML 10 ML VIAL SQ SCH (09:00)
--- NOTE | 2019-07-18 09:34 | NUR ---
RN Rounds patient resting in bed, respirations even and unlabored on room air, patient denies any pain, no acute distress noted.
[2019-07-18] MEDS: LEVOFLOXACIN 500 MG TABLET PO SCH (10:33)
[2019-07-18 11:02] LABS: LITHIUM 3.66 mEq/L (0.50-1.0)
--- NOTE | 2019-07-18 11:24 | NUR ---
Paged for high blood sugar
[2019-07-18] MEDS: INSULIN LISPRO SLIDING SCALE 100 UNITS/ML VIAL (humaLOG) SUBCUT PRN ×2 (11:31→17:32)
--- NOTE | 2019-07-18 11:32 | NUR ---
Spoke with Physician Spoke with Dr. Serra, informed him of blood sugar 572 and that 12 units humalog were given, informed him of critical lab lithium 3.66, no new orders, patient resting in bed, no acute distress noted.
[2019-07-18 12:07] LABS: HEPATITIS B CORE AB, TOTAL Negative (Negative); HEPATITIS B SURFACE AG Negative (Negative); HEPATITIS C VIRUS AB <0.1 s/co ratio (0.0-0.9)
--- NOTE | 2019-07-18 12:15 | NUR ---
Physician Rounds Dr. Serra at bedside examining patient, informed him that patients current heart rate is 120-130s, informed him that patients WBC this morning were 20.5, physician to enter orders.
[2019-07-18] MEDS ORDERED: ATENOLOL 25 MG TABLET(TENORMIN) PO ONE (12:30)
[2019-07-18 12:38] VITALS: BP_SYST 152
--- NOTE | 2019-07-18 14:20 | NUR ---
RN Rounds patient resting in bed, respirations even and unlabored on room air, no pain noted using FLACC scale, no acute distress noted.
--- NOTE | 2019-07-18 16:40 | NUR ---
RN Rounds patient resting in bed, respirations even and unlabored on room air, no pain noted using FLACC scale, no acute distress noted.
[2019-07-18 16:54] VITALS: BP_SYST 125
[2019-07-18] MEDS: INSULIN NPH 100 UNITS/ML 10 ML VIAL SQ SCH (17:33)
--- NOTE | 2019-07-18 18:16 | NUR ---
RN Rounds patient sitting up in bed eating dinner with assistance, tolerating well, no acute distress noted.
--- NOTE | 2019-07-18 19:10 | NUR ---
Closing Note bedside SBAR report given to receiving RN, patient resting in bed, respirations even and unlabored on room air, no pain noted using FLACC scale, no acute distress noted, educated patient on use of call light and asked to call for assistance, call light in reach, bed in low and locked position, care endorsed to retail shift manager RN.
--- NOTE | 2019-07-18 19:45 | NUR ---
A/A/OX1 .SPEECH GARBLED.FOLLOW SIMPLE COMMAND. NOTED WITH OCCASIONAL NON PRODUCTIVE COUGH.V/SS. AFEBRILE.TELE SHOWED SR WITH BBB. TOTAL CARE.INSTRUCTED TO USE CALL LIGHT NEEDED;WITHIN REACH.
[2019-07-18 20:00] VITALS: BP_SYST 93
--- NOTE | 2019-07-18 21:00 | NUR ---
FINGER STICK BLD SUGAR 150. DUE MEDS ADM.
[2019-07-18] MEDS: TAMSULOSIN HCL 0.4 MG CAP PO SCH (21:53)
--- NOTE | 2019-07-18 22:30 | NUR ---
IV INSERTED ON HIS LFA WITH ANGIO #22 X 1. RN & PLANT BIOLOGY PROFESSOR HOLDING PT.
--- NOTE | 2019-07-18 22:45 | NUR ---
IVF NS STARTED @ 100ML /HR INFUSING WELL.DUE MEDS ADM.
--- NOTE | 2019-07-19 | NUR ---
RESTING COMFORTABLY IN NO ACUTE DISTRESS.IVF INFUSING WELL.
[2019-07-19 00:05] VITALS: BP_SYST 121
--- NOTE | 2019-07-19 02:00 | NUR ---
ASLEEP IN NO ACUTE DISTRESS.
--- NOTE | 2019-07-19 04:00 | NUR ---
ASLEEP IN NO ACUTE DISTRESS.SAFETY MAINTAINED.
--- NOTE | 2019-07-19 06:30 | NUR ---
FINGER STICK BLD SUGAR 114
[2019-07-19] MEDS: VANCOMYCIN HCL 1,500 MG in NS 250 ML IV SCH ×2 (06:36→21:27)
[2019-07-19] MEDS: LORazepam 1 MG TABLET PO PRN ×2 (06:49→16:21)
--- NOTE | 2019-07-19 06:49 | NUR ---
COMBATIVE.ATIVAN 1 MG PO ADM. ENDORSED IN NO ACUTE DISTRESS.SAFETY MAINTAINED.
[2019-07-19 07:40] LABS: BASOPHILS # (AUTO) 0.1 K/uL (0.0-0.2); BASOPHILS % (AUTO) 0.4 % (0.0-2.0); EOSINOPHILS # (AUTO) 0.3 K/uL (0.0-0.4); EOSINOPHILS % (AUTO) 1.2 % (0.0-4.0); HEMATOCRIT 43.1 % (36-54); HEMOGLOBIN 13.9 g/dL (14.0-18.0); MEAN CORPUSCULAR HEMOGLOBIN 31 pg (27-31); MEAN CORPUSCULAR HGB CONC 32 % (32-36); MEAN CORPUSCULAR VOLUME 96 fL (79.0-98.0); MONOCYTES # (AUTO) 1.7 K/uL (0.0-1.0); MONOCYTES % (AUTO) 7.8 % (1.7-9.3); NEUTROPHILS # (AUTO) 17.8 K/uL (1.8-7.7); PLATELET COUNT (AUTO) 252 K/uL (130-430); RED BLOOD CELL COUNT(AUTO) 4.51 MIL/uL (4.2-6.2); RED CELL DISTRIBUTION WIDTH 12.9 % (9.0-15.0); WHITE BLOOD COUNT (AUTO) 21.8 K/uL (4.8-10.8)
--- NOTE | 2019-07-19 07:40 | NUR ---
Initial notes- In bed, confused,agitated, trying to get out of bed. IV is beeping and not flushing. Will try to fix after patient calm down.
[2019-07-19 08:00] VITALS: BP_SYST 128
[2019-07-19 08:09] LABS: ALBUMIN 2.8 g/dL (3.4-4.8); CALCIUM 10.4 mg/dL (8.4-11.0); CREATININE 1.37 mg/dL (0.55-1.30); POTASSIUM 4.5 mmol/L (3.5-5.1); TOTAL BILIRUBIN 0.4 mg/dL (0.0-1.0)
[2019-07-19] MEDS: QUEtiapine FUMARATE 25 MG TABLET PO SCH ×3 (08:14→20:26)
[2019-07-19] MEDS: LIPASE/PROTEASE/AMYLASE 1 CAP PO SCH ×3 (08:14→20:26)
[2019-07-19] MEDS: risperiDONE 1 MG TABLET (RisperDAL) PO SCH ×2 (08:14→20:26)
[2019-07-19] MEDS: ATENOLOL 25 MG TABLET(TENORMIN) PO SCH (08:15)
[2019-07-19] MEDS: HEPARIN SODIUM,PORCINE 5000 UNITS/ML VIAL SUBCUT SCH ×2 (08:23→20:38)
[2019-07-19] MEDS: INSULIN NPH 100 UNITS/ML 10 ML VIAL SQ SCH ×2 (08:25→17:19)
--- NOTE | 2019-07-19 09:00 | NUR ---
Fix IV and still good. IVF infusing well at this time.
--- NOTE | 2019-07-19 09:38 | NUR ---
Drowsy, arousable. No distress noted.
[2019-07-19 11:10] LABS: NEUTROPHILS % (AUTO) 81.6 % (40.0-70.0)
[2019-07-19] MEDS: LEVOFLOXACIN 500 MG TABLET PO SCH (11:12)
--- NOTE | 2019-07-19 12:00 | NUR ---
Notes- Pt asleep at this time. breathing even and unlabored. No distress noted.
--- NOTE | 2019-07-19 13:30 | NUR ---
Notes- Pt is awake now, feed patient and eat about 75 % of his lunch. IVF infusing well
[2019-07-19] MEDS: NACL 0.9% 1,000 ML IV SCH (14:21)
--- NOTE | 2019-07-19 14:29 | NUR ---
trying to get out of bed and agitated, seroquel given. will monitor.
[2019-07-19 15:19] VITALS: BP_SYST 119
--- NOTE | 2019-07-19 16:22 | NUR ---
pt still awake and agitated, ativan given at this time. will monitor.
[2019-07-19] MEDS: INSULIN LISPRO SLIDING SCALE 100 UNITS/ML VIAL (humaLOG) SUBCUT PRN ×2 (17:17→20:40)
--- NOTE | 2019-07-19 17:22 | NUR ---
Nutrition F/U (short note d/t high patient load) RD reviewed pt's current EMR including diet Hx, physician notes, nursing notes, pertinent labs/meds/procedures, care trends, and care activity. Per EMR, pt has been agitated today, but tolerated 75% of lunch. PO intake records indicate 66% average x5 meals. Labs noted elevated BG levels; pending HgA1c results. Pt may benefit from diabetic-friendly diet modifications for improvement BG control. Recommend renal, CCHO, pureed diet -- this diet comes standard w/ Glucerna TID ONS (provides 660 kcal/day, 30 gm protein/day). Pt is at moderate nutrition risk; RD to F/U within 3-5 days.
--- NOTE | 2019-07-19 18:30 | NUR ---
Notes- In bed, drowsy. repositioed for comfort. IVF still infusing. No distress noted. Will endorse
--- NOTE | 2019-07-19 19:45 | NUR ---
A/A/OX1. CONFUSED.DENIES ANY DISCOMFORT.DENIES SOB @ THIS TIME.IV ON HIS LFA SWOLLEN & D/C.INSTRUCTED TO USE CALL LIGHT NEEDED;WITHIN REACH.SIDE RAILS UP X3.
[2019-07-19 20:00] VITALS: BP_SYST 122
[2019-07-19] MEDS: TAMSULOSIN HCL 0.4 MG CAP PO SCH (20:26)
--- NOTE | 2019-07-19 20:40 | NUR ---
FINGER STICK BLD SUGAR 162.HUMULOG 2 UNITS SUB Q ADM. SNACKS GIVEN.
--- NOTE | 2019-07-19 21:15 | NUR ---
IV INSERTED BY RN ON HIS RFA WITH ANGIO #22 X 1.IVF NS @ 100 ML/HR INFUSING WELL.
--- NOTE | 2019-07-19 22:00 | NUR ---
PM CARE DONE BY RN & MACHINE FILLER SERVICER.
[2019-07-19] MEDS: ZOLPIDEM TARTRATE 5 MG TABLET PO PRN (23:44)
--- NOTE | 2019-07-19 23:44 | NUR ---
TRIEN 10MG PO ADM .KEPT MOVING ON BED & TALKING TO HIMSELF.
[2019-07-20 00:05] VITALS: BP_SYST 123
--- NOTE | 2019-07-20 00:44 | NUR ---
STILL AWAKE .INC OF URINE.CLEAN WITH SURGICAL NURSE PRACTITIONER & REPOSITIONED.
--- NOTE | 2019-07-20 02:00 | NUR ---
A/A OX 1.NO ACUTE DISTRESS.IVF INFUSING WELL.
--- NOTE | 2019-07-20 04:45 | NUR ---
IV PULLED ACCIDENTALLY BY PT.
[2019-07-20] MEDS: VANCOMYCIN HCL 1,500 MG in NS 250 ML IV SCH ×3 (04:49→20:26)
[2019-07-20] MEDS: LORazepam 1 MG TABLET PO PRN ×3 (05:00→20:05)
--- NOTE | 2019-07-20 05:00 | NUR ---
VERY AGITATED.ATIVAN 1MG PO ADM.
--- NOTE | 2019-07-20 05:15 | NUR ---
IV INSERTED ON HIS LFA #20 X1 BY ANOTHER RN.DUE MEDS INFUSING WELL.
[2019-07-20] MEDS: GLUCOSE 15 GM GEL (in 37.5 GM TUBE) PO PRN (06:13)
[2019-07-20] MEDS: DEXTROSE 50% JECT 50 ML DISP.SYRIN IVP PRN (06:40)
--- NOTE | 2019-07-20 07:20 | NUR ---
@0600FINGER STICK BLD SUGAR 45.GLUCOSE PO ADM.@0615 FINGER STICK BLD SUGAR 62. PT VERY AGITATED. D50 1 AMP ADM. @0700 FINGER STICK BLD SUGAR 217. ENDORSED IN NO ACUTE DISTRESS.SAFETY MAINTAINED.
--- NOTE | 2019-07-20 07:34 | NUR ---
Initial notes: Patient awake, alert and oriented x1. Stable. Agitated. Safety measures in placed. Bed alarm on. Received report from HORTENSIA Pedraza.
[2019-07-20 07:45] LABS: BASOPHILS % (AUTO) 0.1 % (0.0-2.0); EOSINOPHILS # (AUTO) 0.2 K/uL (0.0-0.4); EOSINOPHILS % (AUTO) 0.9 % (0.0-4.0); HEMATOCRIT 41.1 % (36-54); HEMOGLOBIN 13.4 g/dL (14.0-18.0); LYMPHOCYTES # (AUTO) 1.9 K/uL (1.0-5.5); LYMPHOCYTES % (AUTO) 9.4 % (20.5-51.5); MEAN CORPUSCULAR HEMOGLOBIN 31 pg (27-31); MEAN CORPUSCULAR HGB CONC 33 % (32-36); MEAN CORPUSCULAR VOLUME 94 fL (79.0-98.0); MONOCYTES % (AUTO) 9.8 % (1.7-9.3); NEUTROPHILS # (AUTO) 16.2 K/uL (1.8-7.7); NEUTROPHILS % (AUTO) 79.8 % (40.0-70.0); PLATELET COUNT (AUTO) 294 K/uL (130-430); RED BLOOD CELL COUNT(AUTO) 4.38 MIL/uL (4.2-6.2); RED CELL DISTRIBUTION WIDTH 13.2 % (9.0-15.0); WHITE BLOOD COUNT (AUTO) 20.2 K/uL (4.8-10.8)
[2019-07-20 08:01] VITALS: BP_SYST 120
[2019-07-20 08:25] LABS: ALBUMIN 2.8 g/dL (3.4-4.8); CREATININE 1.15 mg/dL (0.55-1.30); TOTAL BILIRUBIN 0.3 mg/dL (0.0-1.0)
[2019-07-20] MEDS: NACL 0.9% 1,000 ML IV SCH ×3 (08:38→13:23)
[2019-07-20] MEDS: INSULIN NPH 100 UNITS/ML 10 ML VIAL SQ SCH ×2 (09:00→17:04)
--- NOTE | 2019-07-20 09:09 | NUR ---
Lynn conversation: Spoke to Dr. Serra. Informed Dr. Serra was agitated and trying to get up. Ordered Ativan 1mg IVP x1.
[2019-07-20] MEDS ORDERED: LORazepam 2 MG/ML VIAL IVP ONE (09:15)
[2019-07-20] MEDS: HEPARIN SODIUM,PORCINE 5000 UNITS/ML VIAL SUBCUT SCH ×2 (09:49→20:57)
[2019-07-20] MEDS: QUEtiapine FUMARATE 25 MG TABLET PO SCH ×3 (09:52→20:52)
[2019-07-20] MEDS: ATENOLOL 25 MG TABLET(TENORMIN) PO SCH (09:52)
[2019-07-20] MEDS: risperiDONE 1 MG TABLET (RisperDAL) PO SCH ×2 (09:56→20:52)
[2019-07-20] MEDS: LIPASE/PROTEASE/AMYLASE 1 CAP PO SCH ×3 (09:56→20:52)
[2019-07-20] MEDS: LEVOFLOXACIN 500 MG TABLET PO SCH (09:56)
[2019-07-20 10:47] LABS: LITHIUM 2.85 mEq/L (0.50-1.0)
[2019-07-20 11:11] VITALS: BP_SYST 112
[2019-07-20 15:17] VITALS: BP_SYST 140
--- NOTE | 2019-07-20 16:30 | NUR ---
rounds: Patient trying to get up from his bed. Ativan was already given. Let him calmed down and repositioned the patient.
[2019-07-20] MEDS: INSULIN LISPRO SLIDING SCALE 100 UNITS/ML VIAL (humaLOG) SUBCUT PRN (17:03)
--- NOTE | 2019-07-20 18:02 | NUR ---
Closing notes: Patient sleeping. Stable. Needs attended. Call light within reach. Safety measures in placed. Bed alarm on. Report will be given to security shift manager.
--- NOTE | 2019-07-20 19:30 | NUR ---
OPENING NOTE Received patient restless in bed, awake and talking to self. IVF infusing via IV to LFA. Side rails up, begd locked in lowest position and bed alarm on.
[2019-07-20 20:00] VITALS: BP_SYST 157
--- NOTE | 2019-07-20 20:05 | NUR ---
Ativan Patient is agitated and restless, constantly moving around in bed, swinging arms and legs. He is not covered and is refusing any sheet. Administered ativan 1mg PO crushed and mixed in sugar free pudding. Patient was cooperative and swallowed med in pudding. Will continue to monitor.
[2019-07-20] MEDS: TAMSULOSIN HCL 0.4 MG CAP PO SCH (20:52)
--- NOTE | 2019-07-20 21:31 | NUR ---
Medications Due medications given. PO meds were mixed with pudding and he swallowed. I was assisted by two nurses for the Heparin subQ injection. Patient was provided with pericare and clean pad. Presently is resting with eyes closed and minimal movement. Will continue to monitor.
[2019-07-21] MEDS: ZOLPIDEM TARTRATE 5 MG TABLET PO PRN (00:36)
--- NOTE | 2019-07-21 00:41 | NUR ---
Ambien Patient is awake, resting in bed, tossing and turning. Administered Ambien for sleep as ordered.
[2019-07-21] MEDS: LORazepam 2 MG/ML VIAL IVP PRN ×2 (01:22→05:33)
--- NOTE | 2019-07-21 01:27 | NUR ---
Awake, restless Patient is in and out of light sleep. He is getting louder and kicking his legs in the air and over the bed rail. Administered Ativan 0.5mg IVP as ordered, will continue to monitor.
--- NOTE | 2019-07-21 01:49 | NUR ---
Calm, sleeping Patient settled down. He is sleeping quietly, no garbled words, not swinging arms and no longer kicking leg in the air or over the rail.
[2019-07-21] MEDS: VANCOMYCIN HCL 1,500 MG in NS 250 ML IV SCH (04:43)
--- NOTE | 2019-07-21 04:46 | NUR ---
Antibiotic Due antibiotic, Vanco, administered. Infusing well and patient tolerating.
[2019-07-21] MEDS: NACL 0.9% 1,000 ML IV SCH (05:50)
[2019-07-21 07:50] VITALS: BP_SYST 142
--- NOTE | 2019-07-21 07:50 | NUR ---
INITIAL ROUNDS Received pt AAOx1, pt very restless and agitated at times, pt follows instructions with firm limits only. IVF infusing well to LFA at ordered rate with no s/s infiltration to site. Side rails up x3, bed alarm on and room across from nursing station for safety.
[2019-07-21] MEDS: ATENOLOL 25 MG TABLET(TENORMIN) PO SCH (08:41)
[2019-07-21] MEDS: LIPASE/PROTEASE/AMYLASE 1 CAP PO SCH ×3 (08:41→21:20)
[2019-07-21] MEDS: risperiDONE 1 MG TABLET (RisperDAL) PO SCH (08:41)
[2019-07-21] MEDS: LORazepam 1 MG TABLET PO PRN ×2 (08:42→21:20)
[2019-07-21] MEDS: HEPARIN SODIUM,PORCINE 5000 UNITS/ML VIAL SUBCUT SCH ×2 (08:44→21:31)
[2019-07-21] MEDS: QUEtiapine FUMARATE 25 MG TABLET PO SCH ×2 (08:44→15:17)
--- NOTE | 2019-07-21 08:45 | NUR ---
PT AGITATED/RESTLESS Pt given Ativan as ordered for agitation. Pt repositioned in bed, LEARNING MANAGER now feeding him his breakfast. All precautions remain in place.
[2019-07-21 08:47] LABS: BASOPHILS % (AUTO) 0.3 % (0.0-2.0); EOSINOPHILS # (AUTO) 0.2 K/uL (0.0-0.4); EOSINOPHILS % (AUTO) 1.4 % (0.0-4.0); HEMATOCRIT 40.3 % (36-54); HEMOGLOBIN 13.2 g/dL (14.0-18.0); LYMPHOCYTES # (AUTO) 1.6 K/uL (1.0-5.5); LYMPHOCYTES % (AUTO) 9.8 % (20.5-51.5); MEAN CORPUSCULAR HEMOGLOBIN 31 pg (27-31); MEAN CORPUSCULAR HGB CONC 33 % (32-36); MEAN CORPUSCULAR VOLUME 94 fL (79.0-98.0); MONOCYTES # (AUTO) 1.4 K/uL (0.0-1.0); MONOCYTES % (AUTO) 8.4 % (1.7-9.3); NEUTROPHILS # (AUTO) 13.1 K/uL (1.8-7.7); NEUTROPHILS % (AUTO) 80.1 % (40.0-70.0); PLATELET COUNT (AUTO) 303 K/uL (130-430); RED BLOOD CELL COUNT(AUTO) 4.28 MIL/uL (4.2-6.2); RED CELL DISTRIBUTION WIDTH 12.8 % (9.0-15.0); WHITE BLOOD COUNT (AUTO) 16.3 K/uL (4.8-10.8)
[2019-07-21] MEDS: INSULIN NPH 100 UNITS/ML 10 ML VIAL SQ SCH ×2 (08:47→17:22)
[2019-07-21 09:03] LABS: CREATININE 1.03 mg/dL (0.55-1.30); POTASSIUM 4.2 mmol/L (3.5-5.1)
[2019-07-21 09:04] LABS: ALBUMIN 2.8 g/dL (3.4-4.8); TOTAL BILIRUBIN 0.4 mg/dL (0.0-1.0)
[2019-07-21] MEDS: LEVOFLOXACIN 500 MG TABLET PO SCH (10:48)
[2019-07-21] MEDS: INSULIN LISPRO SLIDING SCALE 100 UNITS/ML VIAL (humaLOG) SUBCUT PRN (12:25)
[2019-07-21 12:30] VITALS: BP_SYST 136
--- NOTE | 2019-07-21 12:49 | NUR ---
SANDEEP/ Pt remains restless in bed, talking and laughing to himself. Pt pulled up in bed again, FILLER WIPER attempted to feed pt his lunch, pt only ate small amount of food, mostly sherbet. All precautions remain in place. Pt seen by Dr. Serra-dima tubbs noted. All precautions remain in place.
--- NOTE | 2019-07-21 14:54 | NUR ---
VANCO Pt's Vanco Trough 28.6-per Bach Pharmacist skip the 1500 dose.
[2019-07-21 16:45] VITALS: BP_SYST 139
[2019-07-21 17:17] LABS: LITHIUM 0.72 mEq/L (0.50-1.0)
--- NOTE | 2019-07-21 18:27 | NUR ---
CLOSING NOTE Pt resting quietly in bed with no s/s resp distress, no c/o pain or discomfort. Pt remains restless at times, trying to get out of bed. IVF infusing well to LFA at ordered rate with no s/s infiltration to site. Dr. Gaytan here and saw pt-informed the doctor that the pt is restless all day. Needs met, all precautions remain in place, call light within reach.
--- NOTE | 2019-07-21 19:31 | NUR ---
sitter at bedside PATIENT BEEN TRYING TO GET OUT PF BED SINCE THIS MORNING, ABLE TO MOVE HIMSELF CLOSE TO THE SIDE OF BED, NOTICE HALF OF HIS BODY ALREADY HANGING ON THE RAILS. MOVE TO ROOM 132A FOR CLOSE MONITORING.
--- NOTE | 2019-07-21 19:35 | NUR ---
OPENING NOTES Received patient alert, in and out of sleep, no distress observed. IVF running to left forearm, dressings c/d/i. Call light within reach, bed alarm on, bed at lowest position. Will continue to monitor.
[2019-07-21 20:00] VITALS: BP_SYST 136
--- NOTE | 2019-07-21 21:10 | NUR ---
PAGED I PAGED DR. ELIZONDO ATG [phone] I SPOKE WITH BETSY MITTAL
[2019-07-21] MEDS: MIRTAZAPINE 15 MG TABLET PO SCH (21:20)
[2019-07-21] MEDS: QUEtiapine FUMARATE 100 MG TABLET PO SCH (21:20)
[2019-07-21] MEDS: TAMSULOSIN HCL 0.4 MG CAP PO SCH (21:20)
[2019-07-21] MEDS: GLUCOSE 15 GM GEL (in 37.5 GM TUBE) PO PRN ×2 (21:42→22:14)
[2019-07-21] MEDS: VANCOMYCIN HCL 1.25 GM/NS 250 ML IV SCH (21:56)
--- NOTE | 2019-07-22 00:11 | NUR ---
Patient continues to want to get out of bed. Reoriented patient to room and reason for being at the hospital. Will continue to monitor.
[2019-07-22 00:20] VITALS: BP_SYST 113
--- NOTE | 2019-07-22 00:21 | NUR ---
SPOKE TO DR. DANIELS, RECEIVED NEW ORDERS OF CHANGING IVF TO D51/2NS @60 AND TO HOLD NPH, PATIENT'S GLUCOSE HAD CONTINUED TO STAY LOW; 34 AND 44 WHEN RECHECKED, AND THEN 66 AFTER ONE GLUCAGON, AND BLOOD SUGAR OF 71 AFTER SECOND GLUCAGON. PATIENT IS ASYMPTOMATIC.
--- NOTE | 2019-07-22 00:21 | NUR ---
DR. DANIELS CALLED BACK @ [id number]
[2019-07-22] MEDS ORDERED: D5/0.45 NS 1,000 ML IV SCH (00:30)
--- NOTE | 2019-07-22 02:03 | NUR ---
Patient is resting, eyes closed. No signs of distress observed. IVF running. Will continue to monitor.
--- NOTE | 2019-07-22 04:45 | NUR ---
DR. TRAN AT BEDSIDE. MAKING ROUNDS, DR. TRAN WILL PUT IN NEW ORDERS.
[2019-07-22] MEDS: VANCOMYCIN HCL 1.25 GM/NS 250 ML IV SCH ×3 (05:52→21:01)
--- NOTE | 2019-07-22 06:35 | NUR ---
CLOSING NOTES Patient is resting, no signs of distress observed. Blood sugar of 125, no insulin coverage needed. IVF running, dressings c/d/i. Call light within reach, bed alarm on, bed at lowest position. All needs met throughout shift. Will endorse care to oncoming shift.
[2019-07-22 07:11] LABS: BASOPHILS % (AUTO) 0.4 % (0.0-2.0); EOSINOPHILS # (AUTO) 0.2 K/uL (0.0-0.4); EOSINOPHILS % (AUTO) 1.5 % (0.0-4.0); HEMATOCRIT 37.9 % (36-54); HEMOGLOBIN 12.9 g/dL (14.0-18.0); LYMPHOCYTES # (AUTO) 1.7 K/uL (1.0-5.5); LYMPHOCYTES % (AUTO) 12.4 % (20.5-51.5); MEAN CORPUSCULAR HEMOGLOBIN 32 pg (27-31); MEAN CORPUSCULAR HGB CONC 34 % (32-36); MEAN CORPUSCULAR VOLUME 93 fL (79.0-98.0); MONOCYTES # (AUTO) 1.1 K/uL (0.0-1.0); MONOCYTES % (AUTO) 7.9 % (1.7-9.3); NEUTROPHILS # (AUTO) 10.6 K/uL (1.8-7.7); NEUTROPHILS % (AUTO) 77.8 % (40.0-70.0); PLATELET COUNT (AUTO) 316 K/uL (130-430); RED BLOOD CELL COUNT(AUTO) 4.09 MIL/uL (4.2-6.2); WHITE BLOOD COUNT (AUTO) 13.6 K/uL (4.8-10.8)
--- NOTE | 2019-07-22 08:10 | NUR ---
IV NEW IV INSERTED INTO LEFT HAND, USING 22 GAUGE CATHETER, WITH GOOD BLOOD RETURN NOTED. IV IN LEFT FOREARM INFILTRATED AND D/CD.
[2019-07-22] MEDS: HEPARIN SODIUM,PORCINE 5000 UNITS/ML VIAL SUBCUT SCH ×2 (09:00→21:14)
[2019-07-22] MEDS: QUEtiapine FUMARATE 100 MG TABLET PO SCH ×3 (09:02→21:01)
[2019-07-22] MEDS: LIPASE/PROTEASE/AMYLASE 1 CAP PO SCH ×3 (09:02→21:00)
--- NOTE | 2019-07-22 09:15 | NUR ---
ACTIVITY. PT ATTEMPTED TO GET OUT OF BED WITHOUT MAKING NURSE AWARE, INSISTING TO GET TO THE BATHROOM ON HIS OWN. PT STOOD UP BY THE FOOT OF THE BED, UNABLE TO BALANCE HIMSELF, HAD 3 PEOPLE TO ASSIST HIM INTO THE BATHROOM. PT WAS ABLE TO GET BACK IN BED WITH ASSIST WITHOUT ANY DISTRESS NOR INJURY.
[2019-07-22 09:36] VITALS: BP_SYST 136
--- NOTE | 2019-07-22 09:50 | NUR ---
IV. PT'S IV SEEN HANGING FROM HIS HAND, KERLIX WRAPPED INTACT. IV D/CD. PT NOT COOPERATING TO STAFF AT THIS TIME.
[2019-07-22] MEDS: LEVOFLOXACIN 500 MG TABLET PO SCH (10:06)
[2019-07-22] MEDS: ATENOLOL 25 MG TABLET(TENORMIN) PO SCH (10:07)
--- NOTE | 2019-07-22 11:25 | NUR ---
IV. ATTEMPTED TO TALK IN TO PATIENT MANY TIMES ON STARTING ANOTHER IV ACCESS, ABLE TO INSERT IV IN RIGHT HAND, WRAPPED HAND AGAIN WITH KERLIX GAUZE TO PREVENT IV FROM SLIPPING OUT.
[2019-07-22] MEDS: INSULIN LISPRO SLIDING SCALE 100 UNITS/ML VIAL (humaLOG) SUBCUT PRN ×3 (12:17→21:13)
[2019-07-22 12:36] VITALS: BP_SYST 110
--- NOTE | 2019-07-22 12:36 | NUR ---
CONSULT ENDOCRINOLOGY ERRATIC BS DR BORGES [phone] S/W LOCATED WITHIN [facility] OFFICE
--- NOTE | 2019-07-22 12:43 | NUR ---
. LEFT A MESSAGE TO DR AREVALO TO CALL BACK [facility] DEPT.
[2019-07-22] MEDS ORDERED: 0.45% NS 500 ML IV ONE (15:30)
[2019-07-22] MEDS ORDERED: INSULIN GLARGINE 100 UNITS/ML 10 ML VIAL SUBCUT ONE (15:30)
--- NOTE | 2019-07-22 16:02 | NUR ---
INSULIN. LANTUS 15 UNITS SQ GIVEN PER ORDER OF DR BORGES.
[2019-07-22 16:15] VITALS: BP_SYST 137
--- NOTE | 2019-07-22 17:57 | NUR ---
BLOOD SUGAR. 295 MG/DL, WITH HUMALOG SQ GIVEN PER SLIDING SCALE. DINNER TRAY ON PT'S TABLE. PT EAGERLY OPENING THE LID ON OTHER FOOD FROM HIS TRAY.
--- NOTE | 2019-07-22 19:30 | NUR ---
OPENING NOTE RECEIVED CARE OF PT AND SBAR REPORT. PT IS AAOX1, RESTING IN BED, NOTED TO BE RESTLESS, TURNING FROM SIDE TO SIDE. IVF INFUSING TO RIGHT HAND, NO S/S OF INFILTRATION AT IV SITE. BREATHING IS UNLABORED TO ROOM AIR. PT DENIES PAIN OR DISCOMFORT. SAFETY PRECAUTIONS ARE IN PLACE: BED IS LOCKED IN LOWEST POSITION, SIDE RAILS UP X3, BED ALARM ON, CALL LIGHT WITH PT, CLOSE TO NURSES STATION, SITTER IS AT BEDSIDE. WILL CONTINUE TO MONITOR.
[2019-07-22 20:00] VITALS: BP_SYST 132
[2019-07-22] MEDS: TAMSULOSIN HCL 0.4 MG CAP PO SCH (21:01)
[2019-07-22] MEDS: MIRTAZAPINE 15 MG TABLET PO SCH (21:01)
--- NOTE | 2019-07-22 21:14 | NUR ---
MEDICATION PASS PT TOOK HIS MEDICATIONS CRUSHED IN APPLESAUCE WITH NO PROBLEM. PT STATED HE DID NOT NEED HEPARIN SHOT, HOWEVER, PT AGREED TO HAVE IT TONIGHT. ACCUCHECK SHOWED BLOOD SUGAR OF 212, 2 UNITS OF REGULAR INSULIN GIVEN PER SLIDING SCALE INSTRUCTIONS TO GIVE HALF OF THE SLIDING SCALE DOSE AT BEDTIME. SAFETY MAINTAINED, SITTER IS AT BEDSIDE. WILL MONITOR.
--- NOTE | 2019-07-22 22:45 | NUR ---
RN NOTE PT GIVEN SUGAR-FREE PUDDING AND JELLO PER REQUEST. SAFETY MAINTAINED, SITTER AT BEDSIDE. WILL MONITOR.
[2019-07-23 00:18] VITALS: BP_SYST 144
--- NOTE | 2019-07-23 00:30 | NUR ---
SLEEPING PT RESTING IN BED, APPEARS TO BE SLEEPING. NO S/S OF ACUTE DISTRESS. BREATHING IS UNLABORED TO ROOM AIR, VISIBLE SYMMETRICAL RISE AND FALL OF CHEST NOTED. IVF INFUSING AT ORDERED RATE, NO S/S OF INFILTRATION AT IV SITE. SAFETY PRECAUTIONS ARE IN PLACE. SITTER IS AT BEDSIDE. WILL MONITOR.
--- NOTE | 2019-07-23 04:45 | NUR ---
IV RE-INSERTION: IV PULLED OUT. Restarted on LEFT FOREARM . Successful after 1 attempts. Will observe for any signs of infiltration.
[2019-07-23] MEDS: VANCOMYCIN HCL 1.25 GM/NS 250 ML IV SCH ×3 (05:08→21:19)
[2019-07-23] MEDS: INSULIN LISPRO SLIDING SCALE 100 UNITS/ML VIAL (humaLOG) SUBCUT PRN ×4 (06:01→21:23)
--- NOTE | 2019-07-23 06:01 | NUR ---
ACCUCHECK BLOOD SUGAR OF 250, 4 UNITS OF HUMALOG INSULIN ADMINISTERED PER SLIDING SCALE.
--- NOTE | 2019-07-23 06:57 | NUR ---
CLOSING NOTE PT RESTING IN BED, NO S/S OF DISTRESS, PT COOPERATIVE THROUGHOUT SHIFT, BREATHING IS UNLABORED, NO SIGN OF PAIN. SAFETY MAINTAINED, SITTER AT BEDSIDE. WILL MONITOR UNTIL PT CARE IS ENDORSED TO DAY SHIFT RN.
[2019-07-23] MEDS ORDERED: INSULIN GLARGINE 100 UNITS/ML 10 ML VIAL SUBCUT SCH (09:00)
[2019-07-23 09:32] VITALS: BP_SYST 120
[2019-07-23] MEDS: LIPASE/PROTEASE/AMYLASE 1 CAP PO SCH ×3 (09:54→21:17)
[2019-07-23] MEDS: HEPARIN SODIUM,PORCINE 5000 UNITS/ML VIAL SUBCUT SCH ×2 (09:56→21:21)
[2019-07-23] MEDS: QUEtiapine FUMARATE 100 MG TABLET PO SCH ×3 (09:57→21:17)
[2019-07-23] MEDS: ATENOLOL 25 MG TABLET(TENORMIN) PO SCH (09:58)
--- NOTE | 2019-07-23 10:14 | NUR ---
/ERICA BRYANT AT [facility]. RECEIVED NEW ORDER TO CONTINUE LITHOBID 900MG PO QHS AND LITHOBID 600MG PO QAM; ORDERS CLARIFIED AND VERIFIED AND CARRIED OUT.
[2019-07-23] MEDS ORDERED: LITHIUM CARBONATE 300 MG TABLET.SA PO ONE (10:30)
[2019-07-23] MEDS: LEVOFLOXACIN 500 MG TABLET PO SCH (11:06)
--- NOTE | 2019-07-23 12:04 | NUR ---
PLAN GEROPSYCHE ONCE MEDICALLY CLEARED AND IF CONSERVATOR AGREE SPOKE TO DR DANIELS AND STATED THAT THE PLAN FOR PATIENT IS TO TRANSFER TO [facility] DUE TO BEHAVIORAL PROBLEM AND IF CONSERVATOR AGREE. EPIFANIO TWIST MAKER MADE AWARE AND WILL GET IN TOUCH WITH PUBLIC GUARDIAN.
--- NOTE | 2019-07-23 12:06 | NUR ---
SS NOTE/CONSERVATOR CONTACT: EMAIL SPECIALIST left message for Marina Walker pt's conservator @ [phone] to call back for possible [facility] admission for: continued psychotropic meds and behavioral modification. Awaiting promotional marketing analyst back. Addendum: 07/23/19 at 1347 by Rafael Ortiz EMAIL SPECIALIST EMAIL SPECIALIST received a call back from conservator Marina Walker @ [phone]. Ms. Walker is agreeable for pt to go to [facility] but wants to be informed and updated when that time comes. Currently, pt is still not medically cleared to be discharged.
[2019-07-23 12:08] VITALS: BP_SYST 129
[2019-07-23 13:59] LABS: BASOPHILS # (AUTO) 0.1 K/uL (0.0-0.2); BASOPHILS % (AUTO) 1.2 % (0.0-2.0); EOSINOPHILS # (AUTO) 0.2 K/uL (0.0-0.4); EOSINOPHILS % (AUTO) 1.6 % (0.0-4.0); HEMATOCRIT 35.9 % (36-54); HEMOGLOBIN 12.1 g/dL (14.0-18.0); LYMPHOCYTES # (AUTO) 1.6 K/uL (1.0-5.5); LYMPHOCYTES % (AUTO) 15.6 % (20.5-51.5); MEAN CORPUSCULAR HEMOGLOBIN 31 pg (27-31); MEAN CORPUSCULAR HGB CONC 34 % (32-36); MEAN CORPUSCULAR VOLUME 93 fL (79.0-98.0); MONOCYTES # (AUTO) 0.6 K/uL (0.0-1.0); MONOCYTES % (AUTO) 5.8 % (1.7-9.3); NEUTROPHILS # (AUTO) 7.8 K/uL (1.8-7.7); NEUTROPHILS % (AUTO) 75.8 % (40.0-70.0); PLATELET COUNT (AUTO) 327 K/uL (130-430); RED BLOOD CELL COUNT(AUTO) 3.88 MIL/uL (4.2-6.2); RED CELL DISTRIBUTION WIDTH 13.2 % (9.0-15.0); WHITE BLOOD COUNT (AUTO) 10.3 K/uL (4.8-10.8)
[2019-07-23 14:33] LABS: ALBUMIN 2.3 g/dL (3.4-4.8); CALCIUM 8.3 mg/dL (8.4-11.0); CREATININE 1.01 mg/dL (0.55-1.30); POTASSIUM 4.3 mmol/L (3.5-5.1); THYROID STIMULATING HORMONE 1.87 uIu/mL (0.36-3.74); TOTAL BILIRUBIN 0.3 mg/dL (0.0-1.0)
[2019-07-23 16:33] VITALS: BP_SYST 115
[2019-07-23] MEDS: INSULIN Lispro 100 UNITS/ML VIAL (humaLOG) SUBCUT SCH (17:19)
--- NOTE | 2019-07-23 18:28 | NUR ---
Patient is at times refusing care. Some redirection yields good results. The patient eventually is going to need possible [facility] but for now is able to toilette by himself and get his bed made. He enjoys smoking he says and wants to go outside to smoke. Notified this is a smoke free environment. Patient verbalizes understanding. Will endorse to night registered nurse. Cash Roberson RN
[2019-07-23 19:00] VITALS: BP_SYST 118
--- NOTE | 2019-07-23 19:12 | NUR ---
Handoff with HORTENSIA Soto. Cash Roberson RN
--- NOTE | 2019-07-23 19:15 | NUR ---
change of shift.pt.presents quiescent affect;calm,resting.pt.presents loc;confused.pt.ambulates to the restroom.supervised per nsg. general status stable.respiratory status stable;unlabored.call light/telephone w/in reach of the pt.
[2019-07-23 20:00] VITALS: BP_SYST 118
--- NOTE | 2019-07-23 20:00 | NUR ---
pt.assessed.v/s assessed:values w/in normal limits.no c/o pain,nausea.i have apprised the pt.that i may provide snacks/beverages w/in the shift.pt.requested pudding.i have provided the pudding;diabetic item.i have assisted the pt to the restroom.i have assisted the pt 's return to bed.gait assessed;slightly unsteady.general status stable.respiratory status stable.call light/telephone placed w/in reach of the pt.
--- NOTE | 2019-07-23 20:30 | NUR ---
i have assessed the blood glucose:values;188mg/dl.i have apprised the pt.of the blood glucose value.
--- NOTE | 2019-07-23 21:00 | NUR ---
2100p medications administered.pt.capable to ingest the medications whole w/out difficulty.pt.had requested snacks. i have provided snack items to the pt. Addendum: 07/24/19 at 0145 by Charles Okeefe RN i have administered vancomycin;abx;ivpb.via peripheral line access.
[2019-07-23] MEDS: TAMSULOSIN HCL 0.4 MG CAP PO SCH (21:16)
[2019-07-23] MEDS: MIRTAZAPINE 15 MG TABLET PO SCH (21:17)
[2019-07-23] MEDS: LITHIUM CARBONATE 300 MG TABLET.SA PO SCH (21:17)
--- NOTE | 2019-07-23 22:00 | NUR ---
pt.assessed.pt.presents quiescent affect;calm,resting.i have assisted the pt.to the restroom.i have assisted the pt 's return to bed. gait assessed;unsteady.general status stable,respiratory status stable.unlabored.:02-sat%=98%call light/telephone placed w/in reach of the pt.
[2019-07-24] VITALS: BP_SYST 110
--- NOTE | 2019-07-24 | NUR ---
pt.assessed v/s assessed;values w/in normal limits.no c/o pain,nausea.iv access intact patent;vancomycin abx ivpb administration completed.no requests posited @this hour.general status stable.respiratory status stable;unlabored; 02-sat%=98%.call light/telephone w/in reach of the pt.
--- NOTE | 2019-07-24 02:00 | NUR ---
pt.assessed.pt.presents quiescent affect;calm,somnolent.general status stable.respiratory status stable.pt.capable to reposition self.call light/telephone w/in reach of the pt.
--- NOTE | 2019-07-24 04:00 | NUR ---
pt.assessed.pt resents quiescent affect;calm,somnolent.general status stable.respiratory status stable;unlabored.pt.capable to reposition self.call light/telephone w/in reach of the pt.
[2019-07-24] MEDS: VANCOMYCIN HCL 1.25 GM/NS 250 ML IV SCH ×3 (05:06→21:05)
[2019-07-24] MEDS: DEXTROSE 50% JECT 50 ML DISP.SYRIN IVP PRN ×2 (05:16→18:05)
--- NOTE | 2019-07-24 05:54 | NUR ---
Paging Dr Ortega. Spoke with manuel-Sophy. Awaiting for call back.
[2019-07-24] MEDS: INSULIN Lispro 100 UNITS/ML VIAL (humaLOG) SUBCUT SCH ×3 (06:21→17:00)
--- NOTE | 2019-07-24 06:30 | NUR ---
pt.assessed.i have assessed the blood glucose;value;43mg/dl.i administered d50 ivp;50ml.i fed the pt.snacks.i re-assessed the blood glucose; value;184mg/dl. paged;i apprised of pt's blood glucose and interventions. ordered lantus;20-units q am.no additional orders.pt.presents asymptomatic status.pt.assisted to the restroom.pt assisted return to bed.call light/telephone placed w/inn the pt's reach.i have administered vancomycin;abx;ivpb 0600a dose.
[2019-07-24 07:21] LABS: BASOPHILS % (AUTO) 0.3 % (0.0-2.0); EOSINOPHILS # (AUTO) 0.2 K/uL (0.0-0.4); EOSINOPHILS % (AUTO) 1.5 % (0.0-4.0); HEMATOCRIT 36.4 % (36-54); HEMOGLOBIN 12.5 g/dL (14.0-18.0); LYMPHOCYTES # (AUTO) 1.2 K/uL (1.0-5.5); LYMPHOCYTES % (AUTO) 11.7 % (20.5-51.5); MEAN CORPUSCULAR HEMOGLOBIN 32 pg (27-31); MEAN CORPUSCULAR HGB CONC 34 % (32-36); MEAN CORPUSCULAR VOLUME 92 fL (79.0-98.0); MONOCYTES # (AUTO) 0.6 K/uL (0.0-1.0); MONOCYTES % (AUTO) 5.8 % (1.7-9.3); NEUTROPHILS # (AUTO) 8.4 K/uL (1.8-7.7); NEUTROPHILS % (AUTO) 80.7 % (40.0-70.0); PLATELET COUNT (AUTO) 357 K/uL (130-430); RED BLOOD CELL COUNT(AUTO) 3.96 MIL/uL (4.2-6.2); WHITE BLOOD COUNT (AUTO) 10.4 K/uL (4.8-10.8)
[2019-07-24 07:47] LABS: ALBUMIN 2.4 g/dL (3.4-4.8); CALCIUM 8.4 mg/dL (8.4-11.0); CREATININE 0.98 mg/dL (0.55-1.30); POTASSIUM 4.1 mmol/L (3.5-5.1); TOTAL BILIRUBIN 0.2 mg/dL (0.0-1.0)
--- NOTE | 2019-07-24 08:00 | NUR ---
ASSUMPTION OF CARE: RECEIVED PT A/ALERT, ORIENTED TO NAME, DX:RISK FOR UNSTABLE BLOOD SUGAR, R/T DM, PNU, VSS, NO S/S OF DISTRESS, AROUSED VIA LIGHT STIMULI, NO C/O PAIN OR DISCOMFORT, IV SITE INTACT, PATENT, NO REDNESS OR SWELLING, CONFUSED AT TIMES, SITTER AT BEDSIDE FOR FALL RISK PRECAUTION, ORIENTED TO UNIT AND CALL LIGHT, WILL CONT' WITH POC.
[2019-07-24] MEDS ORDERED: INSULIN GLARGINE 100 UNITS/ML 10 ML VIAL SUBCUT SCH (09:00)
--- NOTE | 2019-07-24 09:00 | NUR ---
D ADMIN: MORNING MEDS GIVEN, PER ORDERED BY Lynn, TOLERATED WELL, WILL CONT' TO MONITOR AND ASSESS.
[2019-07-24 09:04] VITALS: BP_SYST 122
[2019-07-24] MEDS: LIPASE/PROTEASE/AMYLASE 1 CAP PO SCH ×3 (09:34→20:55)
[2019-07-24] MEDS: LITHIUM CARBONATE 300 MG TABLET.SA PO SCH ×2 (09:34→20:56)
[2019-07-24] MEDS: ATENOLOL 25 MG TABLET(TENORMIN) PO SCH (09:35)
[2019-07-24] MEDS: QUEtiapine FUMARATE 100 MG TABLET PO SCH ×3 (09:35→20:56)
[2019-07-24] MEDS: HEPARIN SODIUM,PORCINE 5000 UNITS/ML VIAL SUBCUT SCH ×2 (09:37→20:58)
[2019-07-24] MEDS: INSULIN GLARGINE 100 UNITS/ML 10 ML VIAL SUBCUT SCH (09:40)
[2019-07-24] MEDS: INSULIN LISPRO SLIDING SCALE 100 UNITS/ML VIAL (humaLOG) SUBCUT PRN ×2 (11:38→22:15)
[2019-07-24 12:00] VITALS: BP_SYST 129
--- NOTE | 2019-07-24 12:00 | NUR ---
GLUCOSE MONITORING: BLOOD SUGAR DVVRB=079, 10 UNITS HUMALOG INSULIN GIVEN SQ, TOLERATED WELL, LUNCH MEAL AT BEDSIDE, PT A/A/ORIENTED, WILL CONT' WITH POC.
--- NOTE | 2019-07-24 12:26 | NUR ---
Social Service Note: PREMISES TECHNICIAN placed call to pt's conservator, Marina Walker @ [phone]; Marina confirmed that pt is on a LPS conservatorship and that she would be the one to sign for pt should pt be sent to a geropsych unit. Marina stated to call the office once pt is medically cleared for transfer and she or the duty worker will fax over pt's LPS conservatorship paperwork to be sent with pt to the geropsych unit. [facility]; PREMISES TECHNICIAN will fax referral to [facility].
--- NOTE | 2019-07-24 15:20 | NUR ---
Nutrition F/U (short note d/t high patient load) RD reviewed pt's current EMR including diet Hx, physician notes, nursing notes, pertinent labs/meds/procedures, care trends, and care activity. Current Diet Order: Renal, CCHO, puree diet x4 days Pt was seen sitting on side of bed w/ lunch tray atop bedside table, and TEST OPERATOR/sitter present in room. Pt reported good appetite, tolerating diet well. Pt stated he had a BM x1 today. Per EMR, PO itnakes averaged 64% x13 meals since last RD visit 07/19/19. Recommend continuing renal, CCHO, pureed diet -- this diet comes standard w/ Glucerna TID ONS (provides 660 kcal/day, 30 gm protein/day). Pt is at moderate nutrition risk; RD to F/U within 3-5 days.
[2019-07-24 16:22] VITALS: BP_SYST 121
--- NOTE | 2019-07-24 17:00 | NUR ---
GLUCOSE MONITORING: BLOOD SUGAR LEVEL=47, D50 X 1 AMP GIVEN IVP, TOLERATED WELL, WILL CONT' TO MONITOR AND ASSESS.
--- NOTE | 2019-07-24 19:55 | NUR ---
OPENING NOTES Received report from HORTENSIA Meadows. Patient is resting in bed, awake, alert, oriented x 1, breathing evenly and nonlabored on room air. Patient has an IV on the left AC SL, infiltrated, patient refused to restart IV at this time. Educated patient on plan of care, fall/safety precautions, patient said "yeah." Bed is locked, armed, and at lowest position. Will continue to monitor.
[2019-07-24 20:10] VITALS: BP_SYST 118
[2019-07-24] MEDS: MIRTAZAPINE 15 MG TABLET PO SCH (20:56)
[2019-07-24] MEDS: TAMSULOSIN HCL 0.4 MG CAP PO SCH (20:56)
--- NOTE | 2019-07-24 21:15 | NUR ---
MEDICATIONS/ROUNDS Patient is resting in bed, awake, breathing evenly and nonlabored on room air. IV was restarted on the left forearm 22g, patient tolerated it well. Educated patient on due medications, patient said "ok." Administered due medications, patient tolerated it well. BS checked, coverage needed. No s/s of distress at this time, no other needs at this time. Fall/safety precautions, will continue to monitor.
--- NOTE | 2019-07-24 23:30 | NUR ---
ROUNDS Patient is resting in bed, awake, breathing evenly and nonlabored on room air. Patient requested for a midnight snack which was provided. No s/s of distress at this time, no other needs at this time. Fall/safety precautions, will continue to monitor.
[2019-07-25 00:06] VITALS: BP_SYST 145
--- NOTE | 2019-07-25 01:23 | NUR ---
ROUNDS Patient is resting in bed, eyes closed, breathing evenly and nonlabored on room air. No s/s of distress at this time, no other needs at this time. Fall/safety precautions, will continue to monitor.
--- NOTE | 2019-07-25 03:20 | NUR ---
ROUNDS Patient is resting in bed, eyes closed, breathing evenly and nonlabored on room air. Assisted patient to and from the bathroom earlier. No s/s of distress at this time, no other needs at this time. Fall/safety precautions, will continue to monitor.
[2019-07-25] MEDS: VANCOMYCIN HCL 1.25 GM/NS 250 ML IV SCH (05:14)
[2019-07-25 05:21] VITALS: BP_SYST 146
[2019-07-25] MEDS: INSULIN Lispro 100 UNITS/ML VIAL (humaLOG) SUBCUT SCH ×2 (07:04→12:25)
--- NOTE | 2019-07-25 07:06 | NUR ---
CLOSING NOTES Patient is resting in bed, awake, breathing evenly and nonlabored on room air. Educated patient on due medications, patient said "ok." Administered due medications, patient tolerated it well. BS checked, no sliding scale coverage needed. No s/s of distress at this time, no other needs at this time. Fall/safety precautions, will endorse care to morning shift RN.
--- NOTE | 2019-07-25 07:08 | NUR ---
OPENING NOTES PT AWAKE AND ALERT. IV LINE INTACT AND PATENT, NO SIGNS OF INFILTRATION NOTED. PT ON ROOM AIR, TOLERATING WELL. NONLABORED BREATHING NOTED. BED IN LOWEST AND LOCKED POSITION. ALL NEEDS MET. CALL LIGHT IN REACH. FALL AND ASPIRATION PRECAUTIONS IN PLACE. CONTINUE TO MONITOR.
[2019-07-25 07:55] VITALS: BP_SYST 133
[2019-07-25] MEDS: LITHIUM CARBONATE 300 MG TABLET.SA PO SCH (07:58)
[2019-07-25] MEDS ORDERED: IPRATROPIUM/ALBUTEROL SULFATE 3 ML AMPUL.NEB (DUONEB) INH ONE (08:00)
[2019-07-25] MEDS: LIPASE/PROTEASE/AMYLASE 1 CAP PO SCH ×2 (08:00→14:02)
[2019-07-25] MEDS: QUEtiapine FUMARATE 100 MG TABLET PO SCH ×2 (08:00→14:02)
[2019-07-25] MEDS: ATENOLOL 25 MG TABLET(TENORMIN) PO SCH (08:00)
[2019-07-25] MEDS: HEPARIN SODIUM,PORCINE 5000 UNITS/ML VIAL SUBCUT SCH (08:11)
--- NOTE | 2019-07-25 08:14 | NUR ---
ROUTINE MEDS ROUTINE MEDS ADMINISTERED ORDERED PER MD, EDUCATION GIVEN, TOLERATED WELL. NO ACUTE DISTRESS NOTED. ALL NEEDS MET. CALL LIGHT IN REACH. CONTINUE TO MONITOR.
[2019-07-25] MEDS: INSULIN GLARGINE 100 UNITS/ML 10 ML VIAL SUBCUT SCH (08:33)
--- NOTE | 2019-07-25 09:00 | NUR ---
PT REFUSED STOOL SAMPLE FOR C.DIFF, EDUCATED PT ON REASONS FOR TESTING, ASKED 3X, CONTINUE TO REFUSE.
--- NOTE | 2019-07-25 10:00 | NUR ---
PT RESTING IN BED, NONLABORED BREATHING NOTED, CHEST RISE AND FALL NOTED. NO ACUTE DISTRESS NOTED. ALL NEEDS MET. CALL LIGHT IN REACH. CONTINUE TO MONITOR.
[2019-07-25] MEDS ORDERED: IPRATROPIUM/ALBUTEROL SULFATE 3 ML AMPUL.NEB (DUONEB) INH SCH (11:00)
--- NOTE | 2019-07-25 11:54 | NUR ---
PT WATCHING TV IN BED. NO ACUTE DISTRESS NOTED. ALL NEEDS MET. CALL LIGHT IN REACH. CONTINUE TO MONITOR.
[2019-07-25 12:00] VITALS: BP_SYST 105
--- NOTE | 2019-07-25 12:04 | NUR ---
SEEN BY DR. DANIELS AT BEDSIDE.
[2019-07-25] MEDS: INSULIN LISPRO SLIDING SCALE 100 UNITS/ML VIAL (humaLOG) SUBCUT PRN (12:26)
--- NOTE | 2019-07-25 13:32 | NUR ---
ASSISTED PT TO BATHROOM, TOLERATED WELL. ASSISTED PT BACK TO BED. ALL NEEDS MET. CALL LIGHT IN REACH. CONTINUE TO MONITOR.
--- NOTE | 2019-07-25 13:52 | NUR ---
Discharge Planning: [facility] faxed pt referral to [facility] (f [phone] p [phone]) pt accepted to room 139B , [facility] called Bev in admissions to confirm room no changes. CORY made transportation arrangements with [facility] ([phone]) 4:30pm P/U. [facility].
[2019-07-25 13:54] VITALS: BP_SYST 124
--- NOTE | 2019-07-25 14:04 | NUR ---
ROUTINE MEDS ROUTINE MEDS ADMINISTERED ORDERED PER MD, EDUCATION GIVEN, TOLERATED WELL. NO ACUTE DISTRESS NOTED. ALL NEEDS MET. CALL LIGHT IN REACH. CONTINUE TO MONITOR.
[2019-07-25] MEDS ORDERED: FLU VACC QS2019-20 36MOS UP/PF 60 MCG/0.5 ML SYRINGE I.M. PRN (14:15)
--- NOTE | 2019-07-25 15:25 | NUR ---
GAVE REPORT TO MARIA ELENA VALDEZ FROM [facility] FOR TRANSFER.
[2019-07-25 16:00] VITALS: BP_SYST 123
--- NOTE | 2019-07-25 16:00 | NUR ---
ASSISTED PT TO BATHROOM, TOLERATED WELL. ASSISTED PT BACK TO BED. NO ACUTE DISTRESS NOTED. ALL NEEDS MET. CALL LIGHT IN REACH. CONTINUE TO MONITOR.
--- NOTE | 2019-07-25 16:20 | NUR ---
D/C Patient Patient given medication reconciliation form and D/C instructions. Exit Care provided. Patient verbalized understanding. MD discussed with patient the results and treatment provided. Ambulatory with unsteady gait for discharge to [facility]. ACCEPTED TO ROOM 139B. Patient in stable condition, ID band removed. IV catheter removed, intact and dressing applied, no active bleeding. Patient educated on pain management. All belongings sent with patient. MEDIC-1 PICKED UP PT.
== END 2019-07-25 16:20 | DRG 917 ==
LOC: SED 11:38 → STU 14:03 → SMU 07-22 23:11
PROVIDERS: ADMIT Internal Medicine; ATTEND Internal Medicine
DX: T56.891A Toxic effect of other metals, accidental (unintentional), initial encounter (principal); J18.9 Pneumonia, unspecified organism; E87.1 Hypo-osmolality and hyponatremia; N17.9 Acute kidney failure, unspecified; K86.1 Other chronic pancreatitis; R65.10 Systemic inflammatory response syndrome (SIRS) of non-infectious origin without acute organ dysfunction; K72.10 Chronic hepatic failure without coma; F25.9 Schizoaffective disorder, unspecified; D63.8 Anemia in other chronic diseases classified elsewhere; E11.22 Type 2 diabetes mellitus with diabetic chronic kidney disease; E11.65 Type 2 diabetes mellitus with hyperglycemia; F17.210 Nicotine dependence, cigarettes, uncomplicated; F31.9 Bipolar disorder, unspecified; F41.9 Anxiety disorder, unspecified; I12.9 Hypertensive chronic kidney disease with stage 1 through stage 4 chronic kidney disease, or unspecified chronic kidney disease; I25.10 Atherosclerotic heart disease of native coronary artery without angina pectoris; N18.9 Chronic kidney disease, unspecified; N40.0 Benign prostatic hyperplasia without lower urinary tract symptoms; Z79.4 Long term (current) use of insulin; Z79.899 Other long term (current) drug therapy; Y92.89 Other specified places as the place of occurrence of the external cause
CPT/HCPCS: 36415; 71045; 80048; 80053; 80178-TC; 80202-TC; 81000-TC; 82043; 82570; 82570-TC; 82962; 83036; 83735-TC; 83880; 83930-TC; 84100-TC; 84302-TC; 84443-TC; 84484; 84550-TC; 85007; 85025; 85027; 86704; 86706; 86803; 87040-TC; 87081; 87340; 87536; 93005; 94640; 94760; 96365; 96368; 99285; G0378; J0692; J1200; J1644; J1815; J2060; J2185; J2930; J3370; J7030; J7050; J7060; J7512; J7620

== ENCOUNTER 2019-08-19 09:48 | Emergency (ER) | payer OTHER ==
[~2019-08-19] VITALS: Ht 190.5 cm; Wt 95.3 kg
[~2019-08-19 09:48] MED LIST: ARIP20TA4 PO; INSU100V42 SQ; LITH300T PO; LITH600C PO; LORA-259 PO; NPH,100V2 SQ; RISP3TAB5 PO; TAMS-11 PO; pancrelipase PO
[2019-08-19 09:55] VITALS: BP_SYST 109
--- NOTE | 2019-08-19 09:55 | NUR ---
Patient to ER bed 5 to gown for evaluation. Side rails up. Report given to Yarely.
--- NOTE | 2019-08-19 09:57 | NUR ---
Patient brought in by ambulance in the ED for increased confusion and agitation that started over the weekend. Patient denied any chest pain or shortness of breath. Denied any fevers, chills, nausea, or vomiting. Patient is alert and oriented x1, respirations even and unlabored, speaking in full sentences, ambulating with a steady gait. VSS, pain level 0/10. Informed of approximate wait time. Instructed to notify ED staff for any changes in condition or worsening of symptoms.
--- NOTE | 2019-08-19 10:00 | NUR ---
ER Dr. De León at bedside examining patient.
--- NOTE | 2019-08-19 10:14 | NUR ---
Refused X-ray. Dr. De León is aware.
--- NOTE | 2019-08-19 10:17 | NUR ---
Refused accu check. aware.
--- NOTE | 2019-08-19 10:41 | NUR ---
special procedures technologist at bedside as ordered by Dr. De León collecting blood specimen. Patient tolerated the procedure well.
[2019-08-19 10:57] LABS: BASOPHILS # (AUTO) 0.1 K/uL (0.0-0.2); BASOPHILS % (AUTO) 0.4 % (0.0-2.0); EOSINOPHILS % (AUTO) 0.3 % (0.0-4.0); HEMOGLOBIN 12.9 g/dL (14.0-18.0); LYMPHOCYTES # (AUTO) 1.1 K/uL (1.0-5.5); LYMPHOCYTES % (AUTO) 7.3 % (20.5-51.5); MEAN CORPUSCULAR HEMOGLOBIN 31 pg (27-31); MEAN CORPUSCULAR HGB CONC 33 % (32-36); MEAN CORPUSCULAR VOLUME 93 fL (79.0-98.0); MONOCYTES # (AUTO) 0.9 K/uL (0.0-1.0); MONOCYTES % (AUTO) 5.9 % (1.7-9.3); NEUTROPHILS # (AUTO) 13.2 K/uL (1.8-7.7); NEUTROPHILS % (AUTO) 86.1 % (40.0-70.0); PLATELET COUNT (AUTO) 318 K/uL (130-430); RED BLOOD CELL COUNT(AUTO) 4.19 MIL/uL (4.2-6.2); RED CELL DISTRIBUTION WIDTH 13.6 % (9.0-15.0); WHITE BLOOD COUNT (AUTO) 15.4 K/uL (4.8-10.8)
[2019-08-19 11:07] LABS: CALCIUM 10.5 mg/dL (8.4-11.0); CREATININE 1.47 mg/dL (0.55-1.30)
[2019-08-19 11:11] LABS: ALBUMIN 3.6 g/dL (3.4-4.8); TOTAL BILIRUBIN 0.5 mg/dL (0.0-1.0)
[2019-08-19 12:26] VITALS: BP_SYST 109
--- NOTE | 2019-08-19 12:30 | NUR ---
Patient given written and verbal discharge instructions and verbalizes understanding. ER MD discussed with patient the results and treatment provided. Patient in stable condition. ID arm band removed. No Rx given. Patient educated on pain management and to follow up with PMD. Pain Scale 0/10. Opportunity for questions provided and answered. Medication side effect fact sheet provided.
== END 2019-08-19 12:26 | disposition home or self-care (01) ==
LOC: SED 09:48
DX: E11.65 Type 2 diabetes mellitus with hyperglycemia (principal); F31.9 Bipolar disorder, unspecified; I10 Essential (primary) hypertension; F20.9 Schizophrenia, unspecified; F03.90 Unspecified dementia, unspecified severity, without behavioral disturbance, psychotic disturbance, mood disturbance, and anxiety; Z79.899 Other long term (current) drug therapy; Z79.4 Long term (current) use of insulin
CPT/HCPCS: 36415; 71045; 80053; 82962; 84484; 85025; 93005; 99285